=== PATIENT | male | born 1935 | race Caucasian/White ===

== ENCOUNTER 2023-04-22 17:16 | Inpatient (IN) | payer MEDICARE ==
--- NOTE | 2023-04-22 17:33 | ED ---
General Adult HPI - General Source: family, RN notes reviewed <Honey Roldan - Last Filed: 04/22/23 17:32> <Kylee Cummings - Last Filed: 04/22/23 22:17> - General Stated complaint: dehydration, weakness Time Seen by Provider: 04/22/23 17:32 - History of Present Illness Initial comments: Patient is an 87-year-old male presented ER chief complaint of weakness. Family is providing HPI. Sent from urgent care due to urinary retention. Family reports patient has been acting abnormal for the past couple of days. (Honey Roldan) 87-year-old male with past medical history of enlarged prostate, recurrent UTIs who presents to the emergency department with altered mental status. Son-in-law is at bedside and provides a history. States that the patient has been confused for the past couple of days. He has also been weak. They took him to an urgent care today where influenza and COVID swab was performed. Due to the reports that the patient was having they recommended that the patient go into the emergency department for further evaluation. They state that the patient has issues with recurrent UTIs. He was last on antibiotics a couple of weeks ago. Not currently on any antibiotics. The patient has not had any falls. He denies any chest pain or shortness of breath. No abdominal pain. No report of any fevers. Patient does have history of dementia and therefore HPI is limited. No other alleviating, precipitating or modifying factors (Kylee Cummings) - Related Data Home Medications Medication Instructions Recorded Confirmed No Known Home Medications 04/22/23 04/22/23 Allergies Allergy/AdvReac Type Severity Reaction Status Date / Time No Known Allergies Allergy Verified 04/22/23 19:11 Review of Systems ROS Other: All systems not noted in ROS Statement are negative. <Honey Roldan - Last Filed: 04/22/23 17:32> ROS Other: All systems not noted in ROS Statement are negative. <Kylee Cummings - Last Filed: 04/22/23 22:17> ROS Statement: Those systems with pertinent positive or pertinent negative responses have been documented in the HPI. 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 His last check-up July of last year was clear for cancer History of Any Multi-Drug Resistant Organisms: None Reported Past Surgical History: No Surgical Hx Reported Additional Past Surgical History / Comment(s): TURP prior to 2010 Past Anesthesia/Blood Transfusion Reactions: No Reported Reaction Past Psychological History: No Psychological Hx Reported Past Alcohol Use History: Rare Past Drug Use History: None Reported - Past Family History Father Family Medical History: Cancer, CVA/TIA Mother Family Medical History: No Reported History <JamarHoney - Last Filed: 04/22/23 17:32> General Exam <ArvinRenetta malcolmnn - Last Filed: 04/22/23 17:32> General appearance: alert, in no apparent distress Head exam: Present: atraumatic, normocephalic, normal inspection Eye exam: Present: normal appearance, PERRL, EOMI. Absent: scleral icterus, conjunctival injection, periorbital swelling ENT exam: Present: normal exam, mucous membranes moist Neck exam: Present: normal inspection. Absent: tenderness, meningismus, lymphadenopathy Respiratory exam: Present: normal lung sounds bilaterally. Absent: respiratory distress, wheezes, rales, rhonchi, stridor Cardiovascular Exam: Present: tachycardia, irregular rhythm, normal heart sounds. Absent: systolic murmur, diastolic murmur, rubs, gallop, clicks GI/Abdominal exam: Present: soft, normal bowel sounds. Absent: distended, tenderness, guarding, rebound, rigid Extremities exam: Present: normal inspection, full ROM, normal capillary refill. Absent: tenderness, pedal edema, joint swelling, calf tenderness Back exam: Present: normal inspection Neurological exam: Present: alert, CN II-XII intact, other (Oriented x 2) Psychiatric exam: Present: normal affect, normal mood Skin exam: Present: warm, dry, intact, normal color. Absent: rash <Kylee Cummings - Last Filed: 04/22/23 22:17> - General Exam Comments Initial Comments: Visual Physical Exam Vital signs reviewed General: Well-appearing, nontoxic, no acute distress. Head: Normocephalic, atraumatic Eyes: PERRLA, EOMI ENT: Airway patent Chest: Nonlabored breathing Skin: No visual rash, normal skin tone Neuro: Alert and oriented 3 Musculoskeletal: No gross abnormalities (Honey Roldan) Course Vital Signs 04/22/23 04/22/23 17:33 19:01 Temperature 98 F Pulse Rate 125 H 112 H Respiratory 18 17 Rate Blood Pressure 81/52 103/68 O2 Sat by Pulse 98 95 Oximetry Medical Decision Making <Honey Roldan - Last Filed: 04/22/23 17:32> - Lab Data Result diagrams: 04/22/23 17:41 04/22/23 17:41 <EmilianoKylee Morales - Last Filed: 04/22/23 22:17> - Medical Decision Making I performed the quick note portion of the exam. Electronically signed by Honey Roldan PA-C (Honey Roldan) Was pt. sent in by a medical professional or institution ([facility], [facility], urgent care, hospital, or assisted...) When possible be specific @ -Patient was sent in from urgent care Did you speak to anyone other than the patient for history (EMS, parent, family, police, friend...)? What history was obtained from this source @ -I spoke with the daughter and son-in-law Did you review nursing and triage notes (agree or disagree)? Why? @ -I reviewed and agree with nursing and triage notes Were old charts reviewed (outside hosp., previous admission, EMS record, old EKG, old radiological studies, urgent care reports/EKG's, assisted records)? Report findings @ -I reviewed patient's old microbiology. Patient did have a UTI in 2017 which was pansensitive to antibiotics Differential Diagnosis (chest pain, altered mental status, abdominal pain women, abdominal pain men, vaginal bleeding, weakness, fever, dyspnea, syncope, headache, dizziness, GI bleed, back pain, seizure, CVA, palpatations, mental h ealth, musculoskeletal)? @ -Differential Altered Mental Status: Hypoglycemia, DKA, hypercapnia, ETOH, overdose, CO poisoning, trauma, myxedema coma, HTN encephalopathy, infection, encephalitis, psychosis, intercranial hemorrhage, hepatic encephalopathy, meningitis, CVA, this is not meant to be an all-inclusive list EKG interpreted by me (3pts min.). @ -First EKG done at 1741 demonstrates A-fib with a rate of 137. QRS 127. QTc of [address] segment elevations or depressions. Right bundle branch block Repeat EKG done at 2030 demonstrates sinus rhythm with PACs. Rate of 81. QRS 129. QTc of 451. No acute ST segment elevations or depressions. Right bundle branch block X-rays interpreted by me (1pt min.). @ -Yes and there is questionable free air under the right diaphragm. Recommend further imaging to evaluate for this. CT interpreted by me (1pt min.). @ -CT brain, CT chest and CT abdomen are all performed. Patient does have significant prostatomegaly with enlarged bladder. 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 No PE U/S interpreted by me (1pt. min.). @ -None done What testing was considered but not performed or refused? (CT, X-rays, U/S, labs)? Why? @ -None What meds were considered but not given or refused? Why? @ -None Did you discuss the management of the patient with other professionals (professionals i.e. , PA, [facility], lab, RT, psych nurse, social media content manager, aircraft captain, teacher, operations officer afloat, skilled nursing case manager)? Give summary @ -Spoke with Dr. Thomson who will admit the patient Was smoking cessation discussed for >3mins.? @ -No Was critical care preformed (if so, how long)? @ -No Were there social determinants of health that impacted care today? How? (Home lessness, low income, unemployed, alcoholism, drug addiction, transportation, low edu. Level, literacy, decrease access to med. care, fpc, rehab)? @ -No Was there de-escalation of care discussed even if they declined (Discuss DNR or withdrawal of care, Hospice)? DNR status @ -Yes and the family wishes the patient to be full code What co-morbidities impacted this encounter? (DM, HTN, Smoking, COPD, CAD, Cancer, CVA, ARF, Chemo, Hep., AIDS, mental health diagnosis, sleep apnea, morbid obesity)? @ -Recurrent UTIs, enlarged prostate, lymphoma, PE Was patient admitted / discharged? Hospital course, mention meds given and route, prescriptions, significant lab abnormalities, going to OR and other pertinent info. @ -Admitted. Upon arrival patient was placed into room 5. Thorough history and physical exam was performed. Patient placed on continuous pulse ox and cardiac monitoring. Patient does have tachycardia. Noted to be in A-fib with RVR. This is new for the patient. He is denying any chest pain or shortness of breath. Laboratory studies were conducted. Chest x-ray was performed which demonstrates possible free air. Patient has no chest pain however he is sent over for CT of his abdomen pelvis to evaluate for perforated viscus. He is also sent for CT of his chest due to elevated heart rate and history of PE. CT of the brain was performed due to his altered mental status. Imaging is reviewed by myself. He is able to provide a urine sample. Patient found to meet sepsis criteria and the source of the infection was identified at 2049. At this time blood cultures were obtained. Patient given a dose of Rocephin. I also started him on 130 cc of normal saline per hour. Reevaluation of the patient demonstrates that his heart rate is markedly improved. I do feel that the patient has flipped into a normal sinus rhythm. Repeat EKG is performed. Patient does have elevated troponin which is likely due to A-fib. Will trend the troponins. Will not heparinize the patient at this time. I spoke with Dr. Thomson for admission Undiagnosed new problem with uncertain prognosis? @ -Yes Drug Therapy requiring intensive monitoring for toxicity (Heparin, Nitro, Insul in, Cardizem)? @ -No Were any procedures done? @ -No Diagnosis/symptom? @ -Acute encephalopathy, acute UTI, SIRS with sepsis, lactic acidosis, leukocytosis Acute, or Chronic, or Acute on Chronic? @ -Acute Uncomplicated (without systemic symptoms) or Complicated (systemic symptoms)? @ -Complicated Side effects of treatment? @ -No Exacerbation, Progression, or Severe Exacerbation? @ -No Poses a threat to life or bodily function? How? (Chest pain, [place], [place], pneumonia, PE, COPD, DKA, ARF, appy, cholecystitis, CVA, Diverticulitis, Homicidal, Suicidal, threat to staff... and all critical care pts) @ -No (Kylee Cummings) - Lab Data Lab Results 04/22/23 04/22/23 04/22/23 Range/Units 17:41 17:41 17:41 WBC 19.3 H (3.8-10.6) k/uL RBC 4.34 (4.30-5.90) m/uL Hgb 13.3 (13.0-17.5) gm/dL Hct 40.2 (39.0-53.0) % MCV 92.6 (80.0-100.0) fL MCH 30.6 (25.0-35.0) pg MCHC 33.0 (31.0-37.0) g/dL RDW 14.2 (11.5-15.5) % Plt Count 252 (150-450) k/uL MPV 8.6 Neutrophils % (Manual) 92 % Band Neuts % (Manual) 2 % Lymphocytes % (Manual) 3 % Monocytes % (Manual) 3 % Neutrophils # (Manual) 18.10 H (1.3-7.7) k/uL Lymphocytes # (Manual) 0.58 L (1.0-4.8) k/uL Monocytes # (Manual) 0.58 (0-1.0) k/uL Nucleated RBCs 0 (0-0) /100 WBC Manual Slide Review Performed PT 11.6 (10.0-12.5) sec INR 1.1 (<1.2) APTT 22.4 (22.0-30.0) sec Sodium 132 L (137-145) mmol/L Potassium 3.7 (3.5-5.1) mmol/L Chloride 101 (98-107) mmol/L Carbon Dioxide 23 (22-30) mmol/L Anion Gap 8 mmol/L BUN 24 H (9-20) mg/dL Creatinine 1.05 (0.66-1.25) mg/dL Est GFR (CKD-EPI)AfAm 75 (>60 ml/min/1.73 sqM) Est GFR (CKD-EPI)NonAf 65 (>60 ml/min/1.73 sqM) Glucose 109 H (74-99) mg/dL Lactic Ac Sepsis Rflx Plasma Lactic Acid Osmany (0.7-2.0) mmol/L Calcium 9.2 (8.4-10.2) mg/dL Phosphorus 1.1 L (2.5-4.5) mg/dL Magnesium 1.4 L (1.6-2.3) mg/dL Total Bilirubin 1.2 (0.2-1.3) mg/dL AST 35 (17-59) U/L ALT 19 (4-49) U/L Alkaline Phosphatase 94 (38-126) U/L Troponin I (0.000-0.034) ng/mL Total Protein 6.6 (6.3-8.2) g/dL Albumin 3.6 (3.5-5.0) g/dL Urine Color Urine Appearance (Clear) Urine pH (5.0-8.0) Ur Specific Rawlings (1.001-1.035) Urine Protein (Negative) Urine Glucose (UA) (Negative) Urine Ketones (Negative) Urine Blood (Negative) Urine Nitrite (Negative) Urine Bilirubin (Negative) Urine Urobilinogen (<2.0) mg/dL Ur Leukocyte Esterase (Negative) Urine RBC (0-5) /hpf Urine WBC (0-5) /hpf Urine WBC Clumps (None) /hpf Urine Mucus (None) /hpf Influenza Type A (PCR) (Not Detectd) Influenza Type B (PCR) (Not Detectd) RSV (PCR) (Not Detectd) SARS-CoV-2 (PCR) (Not Detectd) 04/22/23 04/22/23 04/22/23 Range/Units 17:41 17:41 17:41 WBC (3.8-10.6) k/uL RBC (4.30-5.90) m/uL Hgb (13.0-17.5) gm/dL Hct (39.0-53.0) % MCV (80.0-100.0) fL MCH (25.0-35.0) pg MCHC (31.0-37.0) g/dL RDW (11.5-15.5) % Plt Count (150-450) k/uL MPV Neutrophils % (Manual) % Band Neuts % (Manual) % Lymphocytes % (Manual) % Monocytes % (Manual) % Neutrophils # (Manual) (1.3-7.7) k/uL Lymphocytes # (Manual) (1.0-4.8) k/uL Monocytes # (Manual) (0-1.0) k/uL Nucleated RBCs (0-0) /100 WBC Manual Slide Review PT (10.0-12.5) sec INR (<1.2) APTT (22.0-30.0) sec Sodium (137-145) mmol/L Potassium (3.5-5.1) mmol/L Chloride (98-107) mmol/L Carbon Dioxide (22-30) mmol/L Anion Gap mmol/L BUN (9-20) mg/dL Creatinine (0.66-1.25) mg/dL Est GFR (CKD-EPI)AfAm (>60 ml/min/1.73 sqM) Est GFR (CKD-EPI)NonAf (>60 ml/min/1.73 sqM) Glucose (74-99) mg/dL Lactic Ac Sepsis Rflx Plasma Lactic Acid Osmany 2.8 H* (0.7-2.0) mmol/L Calcium (8.4-10.2) mg/dL Phosphorus (2.5-4.5) mg/dL Magnesium (1.6-2.3) mg/dL Total Bilirubin (0.2-1.3) mg/dL AST (17-59) U/L ALT (4-49) U/L Alkaline Phosphatase (38-126) U/L Troponin I 0.098 H* (0.000-0.034) ng/mL Total Protein (6.3-8.2) g/dL Albumin (3.5-5.0) g/dL Urine Color Urine Appearance (Clear) Urine pH (5.0-8.0) Ur Specific Rawlings (1.001-1.035) Urine Protein (Negative) Urine Glucose (UA) (Negative) Urine Ketones (Negative) Urine Blood (Negative) Urine Nitrite (Negative) Urine Bilirubin (Negative) Urine Urobilinogen (<2.0) mg/dL Ur Leukocyte Esterase (Negative) Urine RBC (0-5) /hpf Urine WBC (0-5) /hpf Urine WBC Clumps (None) /hpf Urine Mucus (None) /hpf Influenza Type A (PCR) Not Detected (Not Detectd) Influenza Type B (PCR) Not Detected (Not Detectd) RSV (PCR) Not Detected (Not Detectd) SARS-CoV-2 (PCR) Not Detected (Not Detectd) 04/22/23 04/22/23 04/22/23 Range/Units 19:02 20:47 21:09 WBC (3.8-10.6) k/uL RBC (4.30-5.90) m/uL Hgb (13.0-17.5) gm/dL Hct (39.0-53.0) % MCV (80.0-100.0) fL MCH (25.0-35.0) pg MCHC (31.0-37.0) g/dL RDW (11.5-15.5) % Plt Count (150-450) k/uL MPV Neutrophils % (Manual) % Band Neuts % (Manual) % Lymphocytes % (Manual) % Monocytes % (Manual) % Neutrophils # (Manual) (1.3-7.7) k/uL Lymphocytes # (Manual) (1.0-4.8) k/uL Monocytes # (Manual) (0-1.0) k/uL Nucleated RBCs (0-0) /100 WBC Manual Slide Review PT (10.0-12.5) sec INR (<1.2) APTT (22.0-30.0) sec Sodium (137-145) mmol/L Potassium (3.5-5.1) mmol/L Chloride (98-107) mmol/L Carbon Dioxide (22-30) mmol/L Anion Gap mmol/L BUN (9-20) mg/dL Creatinine (0.66-1.25) mg/dL Est GFR (CKD-EPI)AfAm (>60 ml/min/1.73 sqM) Est GFR (CKD-EPI)NonAf (>60 ml/min/1.73 sqM) Glucose (74-99) mg/dL Lactic Ac Sepsis Rflx Y Plasma Lactic Acid Osmany 2.0 (0.7-2.0) mmol/L Calcium (8.4-10.2) mg/dL Phosphorus (2.5-4.5) mg/dL Magnesium (1.6-2.3) mg/dL Total Bilirubin (0.2-1.3) mg/dL AST (17-59) U/L ALT (4-49) U/L Alkaline Phosphatase (38-126) U/L Troponin I (0.000-0.034) ng/mL Total Protein (6.3-8.2) g/dL Albumin (3.5-5.0) g/dL Urine Color Red Urine Appearance Turbid (Clear) Urine pH 7.0 (5.0-8.0) Ur Specific Rawlings 1.030 (1.001-1.035) Urine Protein 1+ H (Negative) Urine Glucose (UA) Negative (Negative) Urine Ketones Negative (Negative) Urine Blood Large H (Negative) Urine Nitrite Positive (Negative) Urine Bilirubin Negative (Negative) Urine Urobilinogen <2.0 (<2.0) mg/dL Ur Leukocyte Esterase Large H (Negative) Urine RBC >182 H (0-5) /hpf Urine WBC >182 H (0-5) /hpf Urine WBC Clumps Many H (None) /hpf Urine Mucus Moderate H (None) /hpf Influenza Type A (PCR) (Not Detectd) Influenza Type B (PCR) (Not Detectd) RSV (PCR) (Not Detectd) SARS-CoV-2 (PCR) (Not Detectd) Disposition <Honey Roldan - Last Filed: 04/22/23 17:32> Is patient prescribed a controlled substance at d/c from ED?: No Time of Disposition: 21:50 Decision to Admit Reason: Admit from EC Decision Date: 04/22/23 Decision Time: 21:50 <Kylee Cummings - Last Filed: 04/22/23 22:17> Clinical Impression: UTI (urinary tract infection), SIRS (systemic inflammatory response syndrome), Lactic acidosis, Leukocytosis, NSTEMI (non-ST elevated myocardial infarction), New onset a-fib Disposition: ADMITTED IP TO THIS HOSP Condition: Stable
[2023-04-22 18:26] LABS: HCT 40.2 % (39.0-53.0); HGB 13.3 gm/dL (13.0-17.5); MCH 30.6 pg (25.0-35.0); MCV 92.6 fL (80.0-100.0); Mean Platelet Volume 8.6; Platelet Count 252 k/uL (150-450); RBC 4.34 m/uL (4.30-5.90); RDW 14.2 % (11.5-15.5); WBC 19.3 k/uL (3.8-10.6)
[2023-04-22 18:32] LABS: INR 1.1 (<1.2); Partial Thromboplastin Time 22.4 sec (22.0-30.0); Prothrombin Time 11.6 sec (10.0-12.5)
[2023-04-22 18:38] LABS: ALT 19 U/L (4-49); AST 35 U/L (17-59); African American GFR (CKD) 75 (>60 ml/min/1.73 sqM); Albumin 3.6 g/dL (3.5-5.0); Alkaline Phosphatase 94 U/L (38-126); Anion Gap 8 mmol/L; Blood Urea Nitrogen 24 mg/dL (9-20); Calcium 9.2 mg/dL (8.4-10.2); Carbon Dioxide 23 mmol/L (22-30); Chloride 101 mmol/L (98-107); Glucose 109 mg/dL (74-99); Magnesium 1.4 mg/dL (1.6-2.3); Non-African American GFR(CKD) 65 (>60 ml/min/1.73 sqM); Phosphorus 1.1 mg/dL (2.5-4.5); Potassium 3.7 mmol/L (3.5-5.1); Sodium 132 mmol/L (137-145); Total Bilirubin 1.2 mg/dL (0.2-1.3); Total Protein 6.6 g/dL (6.3-8.2)
--- NOTE | 2023-04-22 18:51 | XR ---
EXAMINATION TYPE: XR chest 2V DATE OF EXAM: 04/22/2023 COMPARISON: 01/03/2017 HISTORY: 87-year-old male confusion, weakness, dehydration TECHNIQUE: AP and lateral views FINDINGS: Heart normal size. Mild interstitial prominence has a chronic appearance. Some strandy densities in t he lower lungs could represent atelectasis. Spencer of air possibly below the right hemidiaphragm. N o pleural effusion. IMPRESSION: Possible crescent of air below the right hemidiaphragm. Unable to exclude free intraperitoneal air. R ecommend careful clinical correlation for any signs/symptoms of an acute abdomen or recent surgery. C fariba to Dr. Payne in the ER at [phone].
[2023-04-22 19:10] LABS: Band Neutrophils % 2 %; Lymphocytes # (M) 0.58 k/uL (1.0-4.8); Monocytes # (M) 0.58 k/uL (0-1.0); Neutrophils % (M) 92 %; Nucleated Red Blood Cells 0 /100 WBC (0-0); Total Cells Counted 100
--- NOTE | 2023-04-22 19:51 | CT ---
EXAMINATION TYPE: CT brain wo con DATE OF EXAM: 04/22/2023 COMPARISON: 12/24/2009 HISTORY: 87-year-old male Confusion TECHNIQUE: Examination was done in axial plane without intravenous contrast. Coronal and sagittal r econstructions performed. CT DLP: 1182 mGycm Automated exposure control for dose reduction was used. FINDINGS: There is no evidence of acute intracranial hemorrhage, acute ischemic changes, mass, mass-effect, or extra-axial fluid collection. There is no effacement of cerebral sulci or basal subarachnoid cister ns. There is no hydrocephalus. There is no midline shift. Huang-white matter distinction is preserv ed. Normal variation versus stent PSV. Prostatic calcifications in the carotid siphons. Area of cortical hypodensity lateral right frontal lobe is new from 2010. Old lacunar infarct left basal ganglia. Mild bifrontal cerebral atrophy. Moderate lobulated mucosal thickening right maxillary sinus. Additional scattered moderate mucosal th ickening throughout the ethmoid air cells. Mastoid air cells well pneumatized. Bilateral hearing aids . IMPRESSION: 1. A small area of cortical hypodensity laterally frontal lobe likely encephalomalacia related to milady or vascular or traumatic insult. Not seen in 2010. Consider outpatient follow-up MRI with contrast to further evaluate this area. 2. Old lacunar infarct left basal ganglia. 3. Otherwise, no acute intracranial abnormality seen. 4. Moderate chronic ethmoid and right maxillary sinus disease.
--- NOTE | 2023-04-22 19:59 | CT ---
EXAMINATION TYPE: CT chest angio for PE DATE OF EXAM: 04/22/2023 COMPARISON: Radiograph same day. Also, thoracic spine MRI 2017. HISTORY: 87-year-old male Hypotensive, hx of pe. TECHNIQUE: Contiguous axial scanning of the chest performed with IV Contrast, patient injected with 1 00 ml mL of Isovue 370. Coronal and sagittal MIP reconstructions performed. CT DLP: Combined DLP of 1610.4 mGycm Automated exposure control for dose reduction was used. FINDINGS: There is extensive patient breathing motion which degrades the examination. Additional artifact from patient's hands over his chest. Heart is upper limits of normal in size without pericardial effusion. No flattening of the interventr icular septum. LAD and circumflex coronary calcifications are present. 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 Mild aneurysm ascending aorta 4.0 cm. No thoracic lymphadenopathy identified. No obvious large central pulmonary embolus. No definite lobar branch pulmonary embolus. Segmental and more discharge or hemorrhages are essentially nondiagnostic due to the exam limitations. Biapical pleural parenchymal scarring. [id number] diffuse bronchial wall thickening. Prominent strandy dependent atelectasis in the lower lungs. No sizable pleural effusion. Extensive breathing mo tion limits assessment for small pulmonary nodules. Abdomen reported separately. Suspect superior endplate Schmorl's node T12 level unchanged from 2017 MRI. IMPRESSION: 1. SUBOPTIMAL CONTRAST BOLUS. FURTHER LIMITATION THE PATIENT IS BREATHING THROUGH THE SCAN. NO OBV IOUS LARGE CENTRAL PULMONARY EMBOLUS. LOBAR, SEGMENTAL, AND MORE DISTAL ARTERIAL BRANCHES ARE VERY LI MITED AND MOST ARE ENTIRELY NONDIAGNOSTIC FOR ASSESSMENT OF PULMONARY EMBOLI. 2. MILD TO MODERATE BRONCHIAL WALL THICKENING, POSSIBLE BRONCHITIS OR ASTHMA. PROMINENT DEPENDENT ATE LECTASIS. 3. 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 4. ABDOMEN REPORTED SEPARATELY.
--- NOTE | 2023-04-22 20:08 | CT ---
EXAMINATION TYPE: CT abdomen pelvis w con DATE OF EXAM: 04/22/2023 COMPARISON: 01/03/2017 HISTORY: 87-year-old male Unspecified abdominal pain TECHNIQUE: Contiguous axial scanning of the abdomen and pelvis following administration of 100 ml Iso larissa 300 IV contrast. Delayed images through the kidneys and coronal/sagittal reconstructions perform ed. CT DLP: Combined DLP of 1610.4 mGycm Automated exposure control for dose reduction was used. FINDINGS: Chest reported separately. Limited upper abdomen due to extensive breathing motion. Tiny hiatal hernia. Very limited assessment of the liver. Obvious biliary ductal dilatation. Portal venous system appears patent. No abnormal gallbladder distention. Adrenal glands, kidneys, and atrophic pancreas show no gross abnormality. Unchanged appearance to the small spleen with inferior splenules. No dilated small bowel, free fluid, or free air. Infrarenal abdominal aortic aneurysm at 3.6 cm versus 2.9 cm on 01/03/2017. There is circumferential annular thickening at the level of the hepatic flexure of the colon, perfora carlito axial images 11 through 17. Direct visualization to exclude underlying neoplasm here. There is co lonic interposition below the right hemidiaphragm accounting for the radiographic appearance of air b elow the right hemidiaphragm. Normal appendix. There is severe prostatomegaly measuring up to 8.0 cm wide increased from 7.5 cm in 2017. Contiguous soft tissue extending to the left bladder base. Irregular and distorted bladder lumen with either severe bladder wall trabeculations with foci of trapped air within the trabeculations versus bladder wall pneumatosis. Prominent nondependent intraluminal bladder air also also noted. No pelvic adenopathy seen. Bones: Extensive motion artifact limiting assessment. Mild degenerative change of the hips. Stable superior endplate T12 lesion suggesting chronic degenerative etiology. Baastrup's disease. Sca ttered moderate multilevel degenerative disc disease and hypertrophic facet arthropathy. IMPRESSION: 1. NO EVIDENCE FOR FREE INTRAPERITONEAL AIR. THERE IS COLONIC INTERPOSITION BELOW THE RIGHT HEMIDIAPH RAGM ACCOUNTING FOR THE RADIOGRAPHIC APPEARANCE. 2. HOWEVER, THERE IS SOME ANNULAR SOFT TISSUE THICKENING AT THE HEPATIC FLEXURE OF THE COLON. DIRECTL Y VISUALIZATION WHEN PATIENT ABLE TO EXCLUDE UNDERLYING NEOPLASM. 3. SEVERE PROSTATOMEGALY UP TO 8.0 CM WIDE, INCREASED FROM 7.5 CM IN 2017. ABNORMAL SOFT TISSUE THICK ENING EXTENDS TO THE LEFT BLADDER BASE. CORRELATE WITH URINE CYTOLOGY AND PSA VALUES TO EXCLUDE PROST ATE CANCER OR UROTHELIAL NEOPLASM. GIVEN THAT THIS WAS PRESENT TO SOME EXTENT IN 2017, SOME UNDERLYIN G POSTSURGICAL CHANGE AND BPH MAY BE PRESENT. 4. MARKEDLY DISTORTED AND IRREGULAR BLADDER LUMEN WITH SEVERE BLADDER WALL TRABECULATIONS, PROGRESSED FROM 2017. INTRALUMINAL BLADDER AIR AND NUMEROUS FOCI OF AIR ALONG THE WALL OF THE BLADDER PROBABLY AIR TRAPPED WITHIN BLADDER WALL TRABECULATIONS RATHER THAN PNEUMATOSIS. CORRELATED TO EXCLUDE CYSTIT IS INCLUDING EMPHYSEMATOUS CYSTITIS WHICH ARE CONSIDERED LESS LIKELY. RECOMMEND UROLOGY FOLLOW-UP.
[2023-04-22] MEDS: SODIUM CHLORIDE 0.9% 500 ML 500 ML IV ONE (20:52)
[2023-04-22 21:11] LABS: Appearance,Urine Turbid (Clear); Bilirubin,Urine Negative (Negative); Blood,Urine Large (Negative); Color,Urine Red; Glucose,Urine (UA) Negative (Negative); Ketones,Urine Negative (Negative); Leukocyte Esterase,Urine Large (Negative); Mucus,Urine Moderate /hpf; Nitrite,Urine Positive (Negative); Protein,Urine 1+ (Negative); RBC,Urine >182 /hpf (0-5); Urobilinogen,Urine <2.0 mg/dL (<2.0); WBC,Urine >182 /hpf (0-5)
[2023-04-22] MEDS ORDERED: NALOXONE 0.4 MG/ML 1 ML VIAL IV PRN (21:50)
[2023-04-22] MEDS: cefTRIAXone IN SWFI 1,000 MG/10 ML SYRINGE IVP STA (22:54)
[2023-04-22] MEDS: MAGNESIUM SULFATE-D5W PMX 1 GM in DEXTROSE/WATER 1 100ML.BAG IVPB SCH (22:55)
[2023-04-22] MEDS: SODIUM CHLORIDE 0.9% 1,000 ML IV SCH (22:55)
--- NOTE | 2023-04-22 23:51 | P.HPIM ---
History of Present Illness H&P Date: 04/22/23 Patient is a 87-year-old male with a PMH of prostate cancer (not undergoing treatment) who presents to the emergency room with complaints of generalized weakness and confusion. The history is supplemented by the patient's daughter (who lives with the patient) at the bedside who reports that she last saw him at his baseline oriented x 4 and fully independent this morning for breakfast. In the afternoon, she found the patient to be very confused and unable to ambulate due to generalized weakness. She reports that the symptoms are usually indicative of a UTI as he had multiple bouts in the past due to his prostate cancer. The patient has foregone any treatment and previously saw urology [facility] years ago. Patient reported feeling well at the time of interview and was oriented x 4. He does not recall the events of the day but had no active complaints. Denied experiencing abdominal pain, dysuria, fever, chills, cough, nausea, vomiting, chest pain, shortness of breath, or diarrhea. The patient has reportedly been experiencing hematuria throughout the day today. CT abdomen and pelvis in the emergency room revealed severe prostatomegaly 8 cm increased from 7.5 in 2017 along with findings consistent of cystitis with emphysematous cystitis not excluded. Furthermore revealed soft tissue thickening at the hepatic flexure, recommended direct visualization to exclude neoplasm. Chest CTA revealed aneurysmal ascending aorta measuring 4.[address] brain revealed no acute abnormalities. EKG revealed A-fib with RVR at 137 bpm with a right bundle branch block as reviewed by me. Laboratory evaluation was remarkable for lactic acid 2.8, UA consistent with UTI, troponin 0.098, WBC c ount 19.3, magnesium 1.4, lactic acid 2.8. ED documentation reviewed and case discussed with ED provider. Review of systems: Pertinent positives and negatives as discussed in HPI, a complete review of systems was performed and all other systems are negative. Physical examination: Vital signs reviewed General: non toxic, no distress, appears at stated age, normal weight Derm: no unusual rashes/lesions, warm Head: atraumatic, normocephalic, symmetric Eyes: EOMI, no lid lag, anicteric sclera, pupils equal round reactive to light ENT: Nose and ears atraumatic Neck: No cervical lymphadenopathy, trachea midline, supple Mouth: no lip lesion, mucus membranes moist Cardiovascular: S1S2 reg, no murmur, positive dorsalis pedis pulse bilateral, no edema Lungs: CTA bilateral, no rhonchi, no rales, no accessory muscle use Abdominal: soft, nontender to palpation, no guarding, Long catheter in place with bag containing bloody urine Ext: muscle strength 4 out of 5 in all 4 extremities grossly, no gross muscle atrophy, no contractures Neuro: CN II-XI grossly intact, no gross focal neuro deficits Psych: Alert, oriented, appropriate affect Assessment: UTI, in setting of prostate cancer and hematuria A-fib with RVR, newly diagnosed Elevated troponin, suspect due to A-fib, currently asymptomatic Lactic acidosis Hypomagnesemia Imaging: CT abdomen and pelvis in the emergency room revealed severe prostatomegaly 8 cm increased from 7.5 in 2017 along with findings consistent of cystitis with emphysematous cystitis not excluded. Furthermore revealed soft tissue thickening at the hepatic flexure, recommended direct visualization to exclude neoplasm. Chest CTA revealed aneurysmal ascending aorta measuring 4.[address] brain revealed no acute abnormalities. EKG revealed A-fib with RVR at 137 bpm with a right bundle branch block as reviewed by me. Data Review: Laboratory evaluation was remarkable for lactic acid 2.8, UA consistent with UTI, troponin 0.098, WBC count 19.3, magnesium 1.4, lactic acid 2.8. Plan: Prior urine cultures from 2017 showing pansensitive E. 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 His last check-up July of last year was clear for cancer History of Any Multi-Drug Resistant Organisms: None Reported Past Surgical History: No Surgical Hx Reported Additional Past Surgical History / Comment(s): TURP prior to 2009 Past Anesthesia/Blood Transfusion Reactions: No Reported Reaction Past Psychological History: No Psychological Hx Reported Past Alcohol Use History: Rare Past Drug Use History: None Reported - Past Family History Father Family Medical History: Cancer, CVA/TIA Mother Family Medical History: No Reported History Medications and Allergies Home Medications Medication Instructions Recorded Confirmed Type No Known Home Medications 04/22/23 04/22/23 History Allergies Allergy/AdvReac Type Severity Reaction Status Date / Time No Known Allergies Allergy Verified 04/22/23 19:11 Physical Exam Vitals: Vital Signs Temp Pulse Resp BP Pulse Ox 04/22/23 19:01 112 H 17 103/68 95 04/22/23 17:33 98 F 125 H 18 81/52 98 Intake and Output 04/22/23 04/22/23 04/23/23 14:59 22:59 06:59 Other: Weight 79.379 kg Results CBC & Chem 7: 04/22/23 17:41 04/22/23 17:41 Labs: Abnormal Lab Results - Last 24 Hours (Table) 04/22/23 04/22/23 04/22/23 Range/Units 17:41 17:41 17:41 WBC 19.3 H (3.8-10.6) k/uL Neutrophils # (Manual) 18.10 H (1.3-7.7) k/uL Lymphocytes # (Manual) 0.58 L (1.0-4.8) k/uL Sodium 132 L (137-145) mmol/L BUN 24 H (9-20) mg/dL Glucose 109 H (74-99) mg/dL Plasma Lactic Acid Osmany 2.8 H* (0.7-2.0) mmol/L Phosphorus 1.1 L (2.5-4.5) mg/dL Magnesium 1.4 L (1.6-2.3) mg/dL Troponin I (0.000-0.034) ng/mL Urine Protein (Negative) Urine Blood (Negative) Ur Leukocyte Esterase (Negative) Urine RBC (0-5) /hpf Urine WBC (0-5) /hpf Urine WBC Clumps (None) /hpf Urine Mucus (None) /hpf 04/22/23 04/22/23 Range/Units 17:41 20:47 WBC (3.8-10.6) k/uL Neutrophils # (Manual) (1.3-7.7) k/uL Lymphocytes # (Manual) (1.0-4.8) k/uL Sodium (137-145) mmol/L BUN (9-20) mg/dL Glucose (74-99) mg/dL Plasma Lactic Acid Osmany (0.7-2.0) mmol/L Phosphorus (2.5-4.5) mg/dL Magnesium (1.6-2.3) mg/dL Troponin I 0.098 H* (0.000-0.034) ng/mL Urine Protein 1+ H (Negative) Urine Blood Large H (Negative) Ur Leukocyte Esterase Large H (Negative) Urine RBC >182 H (0-5) /hpf Urine WBC >182 H (0-5) /hpf Urine WBC Clumps Many H (None) /hpf Urine Mucus Moderate H (None) /hpf
[2023-04-23 05:09] LABS: Basophils % (A) 0 %; Eosinophils % (A) 0 %; HGB 11.9 gm/dL (13.0-17.5); Lymphocytes % (A) 4 %; MCH 30.4 pg (25.0-35.0); MCHC 32.2 g/dL (31.0-37.0); MCV 94.2 fL (80.0-100.0); Monocytes # (A) 0.8 k/uL (0-1.0); Monocytes % (A) 4 %; Neutrophils # (A) 20.8 k/uL (1.3-7.7); Neutrophils % (A) 91 %; Platelet Count 217 k/uL (150-450); RBC 3.93 m/uL (4.30-5.90); RDW 14.2 % (11.5-15.5); WBC 22.8 k/uL (3.8-10.6)
[2023-04-23 05:22] LABS: African American GFR (CKD) >90 (>60 ml/min/1.73 sqM); Anion Gap 2 mmol/L; Blood Urea Nitrogen 21 mg/dL (9-20); Calcium 8.5 mg/dL (8.4-10.2); Carbon Dioxide 25 mmol/L (22-30); Chloride 106 mmol/L (98-107); Glucose 120 mg/dL (74-99); Non-African American GFR(CKD) 80 (>60 ml/min/1.73 sqM); Potassium 4.2 mmol/L (3.5-5.1); Sodium 133 mmol/L (137-145)
[2023-04-23] MEDS: APIXABAN 5 MG TAB PO SCH (08:15)
[2023-04-23] MEDS: AMIODARONE 200 MG TAB PO SCH (08:15)
--- NOTE | 2023-04-23 08:54 | P.GSCN ---
History of Present Illness Consult date: 04/23/23 History of present illness: 87 yo male brought into the hospital because of confusion. He is found to have a uti. He has an elevated wbc[22k] and lactic acid consistent with uti with sepsis. The patient apparently has had recurrent utis. THe patient has a large prostate on ct scan. He wasnt in retention on the ct scan. there are no upper tract abnormalities noted. He had a turp years ago. He states that he has a history of prostate cancer and follows with his local doctor for this. He states that recently he has been on cranberry extract for recurrent uti as well having hematuria. Upon reviewing his ofice chart he had a turp in 2004 for retention and b9 disease. He came to me in 2018 with an elevated psa [30-40]. He ended up at the [facility] where he underwent a trus with fusion biopsy for g7 05/17 bx positive for ca p. the [facility] did not recommend any treatment given his age and health issues.. The patients large prostate was contributing to most of the elevated psa. 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 His last check-up July of last year was clear for cancer History of Any Multi-Drug Resistant Organisms: None Reported Past Surgical History: No Surgical Hx Reported Additional Past Surgical History / Comment(s): TURP prior to 2009 Past Anesthesia/Blood Transfusion Reactions: No Reported Reaction Past Psychological History: No Psychological Hx Reported Past Alcohol Use History: Rare Past Drug Use History: None Reported - Past Family History Father Family Medical History: Cancer, CVA/TIA Mother Family Medical History: No Reported History Medications and Allergies Home Medications Medication Instructions Recorded Confirmed Type No Known Home Medications 04/22/23 04/22/23 History Allergies Allergy/AdvReac Type Severity Reaction Status Date / Time No Known Allergies Allergy Verified 04/22/23 19:11 Surgical - Exam Vital Signs Temp Pulse Resp BP Pulse Ox 98 F 125 H 18 81/52 98 04/22/23 17:33 04/22/23 17:33 04/22/23 17:33 04/22/23 17:33 04/22/23 17:33 Results - Labs 04/23/23 04:54 04/23/23 04:54 Abnormal Lab Results - Last 24 Hours (Table) 04/22/23 04/22/23 04/22/23 Range/Units 17:41 17:41 17:41 WBC 19.3 H (3.8-10.6) k/uL RBC (4.30-5.90) m/uL Hgb (13.0-17.5) gm/dL Hct (39.0-53.0) % Neutrophils # (1.3-7.7) k/uL Neutrophils # (Manual) 18.10 H (1.3-7.7) k/uL Lymphocytes # (Manual) 0.58 L (1.0-4.8) k/uL Sodium 132 L (137-145) mmol/L BUN 24 H (9-20) mg/dL Glucose 109 H (74-99) mg/dL Plasma Lactic Acid Osmany 2.8 H* (0.7-2.0) mmol/L Phosphorus 1.1 L (2.5-4.5) mg/dL Magnesium 1.4 L (1.6-2.3) mg/dL Troponin I (0.000-0.034) ng/mL Urine Protein (Negative) Urine Blood (Negative) Ur Leukocyte Esterase (Negative) Urine RBC (0-5) /hpf Urine WBC (0-5) /hpf Urine WBC Clumps (None) /hpf Urine Mucus (None) /hpf 04/22/23 04/22/23 04/23/23 Range/Units 17:41 20:47 00:48 WBC (3.8-10.6) k/uL RBC (4.30-5.90) m/uL Hgb (13.0-17.5) gm/dL Hct (39.0-53.0) % Neutrophils # (1.3-7.7) k/uL Neutrophils # (Manual) (1.3-7.7) k/uL Lymphocytes # (Manual) (1.0-4.8) k/uL Sodium (137-145) mmol/L BUN (9-20) mg/dL Glucose (74-99) mg/dL Plasma Lactic Acid Osmany (0.7-2.0) mmol/L Phosphorus (2.5-4.5) mg/dL Magnesium (1.6-2.3) mg/dL Troponin I 0.098 H* 0.234 H* (0.000-0.034) ng/mL Urine Protein 1+ H (Negative) Urine Blood Large H (Negative) Ur Leukocyte Esterase Large H (Negative) Urine RBC >182 H (0-5) /hpf Urine WBC >182 H (0-5) /hpf Urine WBC Clumps Many H (None) /hpf Urine Mucus Moderate H (None) /hpf 04/23/23 04/23/23 04/23/23 Range/Units 04:54 04:54 04:54 WBC 22.8 H (3.8-10.6) k/uL RBC 3.93 L (4.30-5.90) m/uL Hgb 11.9 L (13.0-17.5) gm/dL Hct 37.0 L (39.0-53.0) % Neutrophils # 20.8 H (1.3-7.7) k/uL Neutrophils # (Manual) (1.3-7.7) k/uL Lymphocytes # (Manual) (1.0-4.8) k/uL Sodium 133 L (137-145) mmol/L BUN 21 H (9-20) mg/dL Glucose 120 H (74-99) mg/dL Plasma Lactic Acid Osmany (0.7-2.0) mmol/L Phosphorus (2.5-4.5) mg/dL Magnesium (1.6-2.3) mg/dL Troponin I 0.244 H* (0.000-0.034) ng/mL Urine Protein (Negative) Urine Blood (Negative) Ur Leukocyte Esterase (Negative) Urine RBC (0-5) /hpf Urine WBC (0-5) /hpf Urine WBC Clumps (None) /hpf Urine Mucus (None) /hpf Diabetes panel 04/22/23 04/23/23 Range/Units 17:41 04:54 Sodium 132 L 133 L (137-145) mmol/L Potassium 3.7 4.2 (3.5-5.1) mmol/L Chloride 101 106 (98-107) mmol/L Carbon Dioxide 23 25 (22-30) mmol/L BUN 24 H 21 H (9-20) mg/dL Creatinine 1.05 0.84 (0.66-1.25) mg/dL Glucose 109 H 120 H (74-99) mg/dL Calcium 9.2 8.5 (8.4-10.2) mg/dL AST 35 (17-59) U/L ALT 19 (4-49) U/L Alkaline Phosphatase 94 (38-126) U/L Total Protein 6.6 (6.3-8.2) g/dL Albumin 3.6 (3.5-5.0) g/dL Calcium panel 04/22/23 04/23/23 Range/Units 17:41 04:54 Calcium 9.2 8.5 (8.4-10.2) mg/dL Phosphorus 1.1 L (2.5-4.5) mg/dL Albumin 3.6 (3.5-5.0) g/dL Pituitary panel 04/22/23 04/23/23 Range/Units 17:41 04:54 Sodium 132 L 133 L (137-145) mmol/L Potassium 3.7 4.2 (3.5-5.1) mmol/L Chloride 101 106 (98-107) mmol/L Carbon Dioxide 23 25 (22-30) mmol/L BUN 24 H 21 H (9-20) mg/dL Creatinine 1.05 0.84 (0.66-1.25) mg/dL Glucose 109 H 120 H (74-99) mg/dL Calcium 9.2 8.5 (8.4-10.2) mg/dL Adrenal panel 04/22/23 04/23/23 Range/Units 17:41 04:54 Sodium 132 L 133 L (137-145) mmol/L Potassium 3.7 4.2 (3.5-5.1) mmol/L Chloride 101 106 (98-107) mmol/L Carbon Dioxide 23 25 (22-30) mmol/L BUN 24 H 21 H (9-20) mg/dL Creatinine 1.05 0.84 (0.66-1.25) mg/dL Glucose 109 H 120 H (74-99) mg/dL Calcium 9.2 8.5 (8.4-10.2) mg/dL Total Bilirubin 1.2 (0.2-1.3) mg/dL AST 35 (17-59) U/L ALT 19 (4-49) U/L Alkaline Phosphatase 94 (38-126) U/L Total Protein 6.6 (6.3-8.2) g/dL Albumin 3.6 (3.5-5.0) g/dL - Imaging CT scan - abdomen: report reviewed, image reviewed CT scan - pelvis: report reviewed, image reviewed Assessment and Plan Assessment: Impression: Recurrent uti. Uti with sepsis. history of prostate cancer status indeterminate. Recommendations; Antibiotics and cultures. Will try to determine the status of the cancer however I doubt that it has anything to do with the recurrent utis. I suspect the larger prostate however is a contributing factor. Time with Patient: Greater than 30
[2023-04-23] MEDS ORDERED: ENOXAPARIN 40 MG/0.4 ML SYRINGE SQ SCH (09:00)
--- NOTE | 2023-04-23 09:54 | P.CRDCN ---
History of Present Illness Consult date: 04/23/23 Reason for Consult (text): NSTEMI, NEW ONSET AFIB History of present illness: History of present illness: This is an 87-year-old male with no previous cardiac history. He has a past medical history of large B-cell lymphoma status postchemotherapy in 2010, PE. We have been asked to evaluate the patient for non-ST elevated myocardial infarction and new onset of atrial fibrillation. Patient presented to the hospital due to weakness. Patient denies having any chest pain, palpitations. He is unable to provide reliable history due to underlying dementia. EKG #1 sinus rhythm, #2 A-fib 137 bpm, right bundle branch block, telemetry now sinus rhythm Chest x-ray: Unable to exclude free intraperitoneal air. CT of the abdomen pelvis with contrast reveals no evidence of free intraperitoneal air. Annular soft tissue thickening of the hepatic flexure. Severe prostatomegaly. Distorted and irregular bladder lumen severe bladder wall trabeculations. CT angiogram of the chest suboptimal. No obvious large central pulmonary embolus. Mild to moderate bronchial wall thickening possible bronchitis or asthma. Aneurysmal ascending aorta with root measuring 4.4 cm and ascending portion measuring 4 cm. WBC 22.8, hemoglobin 9.9, platelet count 217. INR 1.1. Sodium 132, potassium 4.2, BUN 21 creatinine 0.84. Blood sugar 120. Troponins 0.098, 0.234, 0.244. Urinalysis positive for infection and blood. Influenza A, influenza B, RSV, COV ID-19 not detected. Home cardiac medications: None Review Of Systems: At the time of my exam: Unable to obtain due to confusion. Physical examination: Gen: This is a 87-year-old male in no acute distress. VS: reviewed HEENT: Head is atraumatic, normocephalic. Pupils equal, round. Sclerae is anicte doris. NECK: Supple. No JVD. LUNGS: Clear to auscultation. No wheezes or rhonchi. No intercostal re tractions. HEART: Regular rate and rhythm. No murmur. ABDOMEN: Soft No tenderness. EXTREMITIES: No pedal edema. No calf tenderness. NEUROLOGICAL: Patient is awake. Assessment: Paroxysmal atrial fibrillation Weakness UTI and sepsis Non-ST elevated myocardial infarction type II due to oxygen demand mismatch from sepsis History of large B-cell lymphoma Plan: Start patient on amiodarone 2 mg twice daily and Eliquis 5 mg twice daily Obtain 2-D echocardiogram and Doppler study to assess cardiac structure and function Further recommendations to follow based upon clinical course Thank you kindly for this consultation. Nurse practitioner note has been reviewed, I agree with documented findings and plan of care. Patient was seen and examined. 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 His last check-up July of last year was clear for cancer History of Any Multi-Drug Resistant Organisms: None Reported Past Surgical History: No Surgical Hx Reported Additional Past Surgical History / Comment(s): TURP prior to 2009 Past Anesthesia/Blood Transfusion Reactions: No Reported Reaction Past Psychological History: No Psychological Hx Reported Past Alcohol Use History: Rare Past Drug Use History: None Reported - Past Family History Father Family Medical History: Cancer, CVA/TIA Mother Family Medical History: No Reported History Medications and Allergies Home Medications Medication Instructions Recorded Confirmed Type No Known Home Medications 04/22/23 04/22/23 History Allergies Allergy/AdvReac Type Severity Reaction Status Date / Time No Known Allergies Allergy Verified 04/22/23 19:11 Physical Exam Vitals: Vital Signs Temp Pulse Resp BP Pulse Ox 04/23/23 06:00 64 16 96/63 95 04/23/23 03:00 65 15 92/53 96 04/23/23 01:00 71 22 90/53 93 L 04/23/23 00:00 76 15 95/54 94 L 04/22/23 23:00 75 14 98/55 96 04/22/23 22:00 76 18 103/71 95 04/22/23 19:01 112 H 17 103/68 95 04/22/23 17:33 98 F 125 H 18 81/52 98 Intake and Output 04/22/23 04/23/23 04/23/23 22:59 06:59 14:59 Other: Weight 79.379 kg Results 04/23/23 04:54 04/23/23 04:54 Cardiac Enzymes 04/22/23 04/22/23 04/23/23 Range/Units 17:41 17:41 00:48 AST 35 (17-59) U/L Troponin I 0.098 H* 0.234 H* (0.000-0.034) ng/mL 04/23/23 Range/Units 04:54 AST (17-59) U/L Troponin I 0.244 H* (0.000-0.034) ng/mL Coagulation 04/22/23 Range/Units 17:41 PT 11.6 (10.0-12.5) sec APTT 22.4 (22.0-30.0) sec CBC 04/22/23 04/23/23 Range/Units 17:41 04:54 WBC 19.3 H 22.8 H (3.8-10.6) k/uL RBC 4.34 3.93 L (4.30-5.90) m/uL Hgb 13.3 11.9 L (13.0-17.5) gm/dL Hct 40.2 37.0 L (39.0-53.0) % Plt Count 252 217 (150-450) k/uL Comprehensive Metabolic Panel 04/22/23 04/23/23 Range/Units 17:41 04:54 Sodium 132 L 133 L (137-145) mmol/L Potassium 3.7 4.2 (3.5-5.1) mmol/L Chloride 101 106 (98-107) mmol/L Carbon Dioxide 23 25 (22-30) mmol/L BUN 24 H 21 H (9-20) mg/dL Creatinine 1.05 0.84 (0.66-1.25) mg/dL Glucose 109 H 120 H (74-99) mg/dL Calcium 9.2 8.5 (8.4-10.2) mg/dL AST 35 (17-59) U/L ALT 19 (4-49) U/L Alkaline Phosphatase 94 (38-126) U/L Total Protein 6.6 (6.3-8.2) g/dL Albumin 3.6 (3.5-5.0) g/dL Current Medications Generic Name Dose Route Start Last Admin Trade Name Freq PRN Reason Stop Dose Admin Acetaminophen 650 mg 04/22/23 22:01 Acetaminophen Tab 325 Mg Tab PO Q6HR PRN Mild Pain or Fever > 100.5 Amiodarone HCl 200 mg 04/23/23 09:00 Amiodarone 200 Mg Tab PO BID JULEE Apixaban 5 mg 04/23/23 09:00 Apixaban 5 Mg Tab PO BID JULEE Protocol Sodium Chloride 1,000 mls @ 130 mls/hr 04/22/23 20:45 04/23/23 06:01 Saline 0.9% IV 130 mls/hr .[id number] JULEE Administration Naloxone HCl 0.2 mg 04/22/23 21:50 Naloxone 0.4 Mg/Ml 1 Ml Vial IV Q2M PRN Opioid Reversal Intake and Output 04/22/23 04/23/23 04/23/23 22:59 06:59 14:59 Other: Weight 79.379 kg 04/23/23 04:54 04/23/23 04:54
--- NOTE | 2023-04-23 14:30 | P.PN ---
Subjective Progress Note Date: 04/23/23 Hospital Course: 87-year-old male with a PMH of prostate cancer?, BPH, large B-cell lymphoma treated with chemotherapy in 2009, who presents to the emergency room with complaints of generalized weakness and confusion. CT abdomen and pelvis in the emergency room revealed severe prostatomegaly 8 cm increased from 7.5 in 2017 along with findings consistent of cystitis with emphysematous cystitis not excl uded. Furthermore revealed soft tissue thickening at the hepatic flexure, recommended direct visualization to exclude neoplasm. Chest CTA revealed aneurysmal ascending aorta measuring 4.[address] brain revealed no acute abnormalities. EKG revealed A-fib with RVR at 137 bpm with a right bundle bra nch block . Laboratory evaluation was remarkable for lactic acid 2.8, UA consistent with UTI, troponin 0.098, WBC count 19.3, magnesium 1.4, lactic acid 2.8. Patient started on IV ceftriaxone. Cardiology and urology consulted. Subjective: Patient seen and examined at bedside. No acute events overnight. Denies any complaints at the moment. Long catheter in place. Pertinent positives and negatives as discussed above, a complete review of systems was performed and all other systems are negative. Vitals Signs Reviewed. General: Nontoxic, no distress, appears at stated age, chronically ill-appearing Derm: Warm, dry Head: Atraumatic, normocephalic, symmetric Eyes: EOMI, no lid lag, anicteric sclera Mouth: No lip lesion, mucus membranes moist Cardiovascular: S1S2 reg, no murmur Lungs: CTA bilateral, no rhonchi, no rales, no accessory muscle use Abdominal: Soft, nontender to palpation, no guarding, no appreciable organomegaly Ext: No gross muscle atrophy, no edema, no contractures Neuro: CN II-XI grossly intact, no focal neuro deficits Psych: Alert, oriented x 2, appropriate affect Data Reviewed Today: Pertinent Labs: WBC 22.8, hemoglobin 11.9, creatinine 0.84, troponin 0.244 Imaging: No new imaging Assessment and Plan: Patient is severely ill, needs close monitoring Active: Sepsis secondary to UTI 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 History of prostate cancer Possible colonic mass, possible recurrent B-cell lymphoma Atrial fibrillation with RVR, newly diagnosed, now rate controlled NSTEMI, likely type II acute metabolic encephalopathy hypomagnesemia -Blood cultures, urine cultures pending -Continue normal saline at 130 cc an hour -Continue IV ceftriaxone 2 g every 24 hours -Urology note reviewed, no interventions needed at this point -Cardiology note reviewed, started patient on amiodarone 200 mg twice daily, Eliquis 5 mg twice daily, echocardiogram pending -Encephalopathy likely in the setting of sepsis, and UTI -Repeat CBC, BMP and magnesium Resolved: Lactic acidosis DVT ppx: Eliquis Code status: Full code Anticipated discharge place: Pending clinical course Anticipated discharge time: Pending clinical course Objective - Vital Signs Vital signs: Vital Signs Temp 98 F 04/22/23 17:33 Pulse 75 04/23/23 10:00 Resp 16 04/23/23 10:00 BP 109/64 04/23/23 10:00 Pulse Ox 95 04/23/23 10:00 FiO2 Intake & Output 04/22/23 04/23/23 04/23/23 18:59 06:59 18:59 Weight 79.379 kg - Labs CBC & Chem 7: 04/23/23 04:54 04/23/23 04:54 Labs: Abnormal Lab Results - Last 24 Hours (Table) 04/22/23 04/22/23 04/22/23 Range/Units 17:41 17:41 17:41 WBC 19.3 H (3.8-10.6) k/uL RBC (4.30-5.90) m/uL Hgb (13.0-17.5) gm/dL Hct (39.0-53.0) % Neutrophils # (1.3-7.7) k/uL Neutrophils # (Manual) 18.10 H (1.3-7.7) k/uL Lymphocytes # (Manual) 0.58 L (1.0-4.8) k/uL Sodium 132 L (137-145) mmol/L BUN 24 H (9-20) mg/dL Glucose 109 H (74-99) mg/dL Plasma Lactic Acid Osmany 2.8 H* (0.7-2.0) mmol/L Phosphorus 1.1 L (2.5-4.5) mg/dL Magnesium 1.4 L (1.6-2.3) mg/dL Troponin I (0.000-0.034) ng/mL Urine Protein (Negative) Urine Blood (Negative) Ur Leukocyte Esterase (Negative) Urine RBC (0-5) /hpf Urine WBC (0-5) /hpf Urine WBC Clumps (None) /hpf Urine Mucus (None) /hpf 04/22/23 04/22/23 04/23/23 Range/Units 17:41 20:47 00:48 WBC (3.8-10.6) k/uL RBC (4.30-5.90) m/uL Hgb (13.0-17.5) gm/dL Hct (39.0-53.0) % Neutrophils # (1.3-7.7) k/uL Neutrophils # (Manual) (1.3-7.7) k/uL Lymphocytes # (Manual) (1.0-4.8) k/uL Sodium (137-145) mmol/L BUN (9-20) mg/dL Glucose (74-99) mg/dL Plasma Lactic Acid Osmany (0.7-2.0) mmol/L Phosphorus (2.5-4.5) mg/dL Magnesium (1.6-2.3) mg/dL Troponin I 0.098 H* 0.234 H* (0.000-0.034) ng/mL Urine Protein 1+ H (Negative) Urine Blood Large H (Negative) Ur Leukocyte Esterase Large H (Negative) Urine RBC >182 H (0-5) /hpf Urine WBC >182 H (0-5) /hpf Urine WBC Clumps Many H (None) /hpf Urine Mucus Moderate H (None) /hpf 04/23/23 04/23/23 04/23/23 Range/Units 04:54 04:54 04:54 WBC 22.8 H (3.8-10.6) k/uL RBC 3.93 L (4.30-5.90) m/uL Hgb 11.9 L (13.0-17.5) gm/dL Hct 37.0 L (39.0-53.0) % Neutrophils # 20.8 H (1.3-7.7) k/uL Neutrophils # (Manual) (1.3-7.7) k/uL Lymphocytes # (Manual) (1.0-4.8) k/uL Sodium 133 L (137-145) mmol/L BUN 21 H (9-20) mg/dL Glucose 120 H (74-99) mg/dL Plasma Lactic Acid Osmany (0.7-2.0) mmol/L Phosphorus (2.5-4.5) mg/dL Magnesium (1.6-2.3) mg/dL Troponin I 0.244 H* (0.000-0.034) ng/mL Urine Protein (Negative) Urine Blood (Negative) Ur Leukocyte Esterase (Negative) Urine RBC (0-5) /hpf Urine WBC (0-5) /hpf Urine WBC Clumps (None) /hpf Urine Mucus (None) /hpf
--- NOTE | 2023-04-23 17:34 | CA ---
Transthoracic Echo Report Name: Neymar Dela Cruz Age: 87 Gender: M : 1935 Exam Date: 04/23/2023 15:37 Exam Location: [facility] Ht (in): 70 Wt (lb): 175 Ordering Physician: Lissa Bowens Attending/Referring Phys: [id number], Gogo Multigrapher Farhana Pal RDCS Procedure CPT: Indications: LVF Cardiac Hx: Technical Quality: Fair Contrast 1: Total Dose (mL): Contrast 2: Total Dose (mL): MEASUREMENTS (Male / Female) Normal Values 2D ECHO LV Diastolic Diameter PLAX 4.0 cm 4.2 - 5.9 / 3.9 - 5.3 cm LV Systolic Diameter PLAX 2.5 cm IVS Diastolic Thickness 1.2 cm 0.6 - 1.0 / 0.6 - 0.9 cm LVPW Diastolic Thickness 0.9 cm 0.6 - 1.0 / 0.6 - 0.9 cm LV Relative Wall Thickness 0.5 Aortic Root Diameter 3.7 cm LA Systolic Diameter LX 4.1 cm 3.0 - 4.0 / 2.7 - 3.8 cm DOPPLER AV Peak Velocity 109.4 cm/s AV Peak Gradient 4.8 mmHg AV Mean Velocity 88.7 cm/s AV Mean Gradient 3.3 mmHg AV Velocity Time Integral 22.5 cm LVOT Peak Velocity 94.4 cm/s LVOT Peak Gradient 3.6 mmHg LVOT Velocity Time Integral 20.5 cm Mitral E Point Velocity 101.9 cm/s Mitral A Point Velocity 76.7 cm/s Mitral E to A Ratio 1.3 MV Deceleration Time 263.2 ms PV Peak Velocity 37.6 cm/s PV Peak Gradient 0.6 mmHg FINDINGS Left Ventricle Mildly increased septal wall thickness. Left ventricular ejection fraction is estimated at 55-60 %. Right Ventricle Normal right ventricular size and function. Right Atrium Normal right atrial size. Left Atrium Mildly increased left atrial diameter. Mitral Valve Mild mitral regurgitation. Aortic Valve Aortic valve not well visualized. Tricuspid Valve Trace tricuspid regurgitation. Pulmonic Valve Pulmonic valve not well visualized. Pericardium Normal pericardium. Aorta Aortic root and proximal ascending aorta not well visualized. CONCLUSIONS Mildly increased left ventricular wall thickness Left ventricular ejection fraction 55-60% Mild mitral regurgitation Trace tricuspid regurgitation Previewed by: Dr. James Lares DO (Electronically Signed) Final Date: 23 April 2023 17:33
[2023-04-23] MEDS: SENNOSIDES 8.6 MG TAB PO SCH (21:01)
[2023-04-24 09:01] LABS: Basophils % (A) 0 %; Eosinophils # (A) 0.1 k/uL (0-0.7); Eosinophils % (A) 0 %; HCT 42.1 % (39.0-53.0); HGB 13.3 gm/dL (13.0-17.5); Hypochromasia Slight; Lymphocytes # (A) 1.4 k/uL (1.0-4.8); Lymphocytes % (A) 9 %; MCHC 31.5 g/dL (31.0-37.0); MCV 95.3 fL (80.0-100.0); Mean Platelet Volume 9.1; Monocytes # (A) 0.8 k/uL (0-1.0); Monocytes % (A) 5 %; Neutrophils # (A) 12.6 k/uL (1.3-7.7); Neutrophils % (A) 84 %; Platelet Count 231 k/uL (150-450); RBC 4.42 m/uL (4.30-5.90); WBC 15.1 k/uL (3.8-10.6)
--- NOTE | 2023-04-24 09:12 | P.PN ---
Subjective Progress Note Date: 04/24/23 Reason for Consult (text): NSTEMI, NEW ONSET AFIB History of present illness: History of present illness: This is an 87-year-old male with no previous cardiac history. He has a past medical history of large B-cell lymphoma status postchemotherapy in 2010, PE. We have been asked to evaluate the patient for non-ST elevated myocardial infarction and new onset of atrial fibrillation. Patient presented to the hospital due to weakness. Patient denies having any chest pain, palpitations. He is unable to provide reliable history due to underlying dementia. EKG #1 sinus rhythm, #2 A-fib 137 bpm, right bundle branch block, telemetry now sinus rhythm Chest x-ray: Unable to exclude free intraperitoneal air. CT of the abdomen pelvis with contrast reveals no evidence of free intraperitoneal air. Annular soft tissue thickening of the hepatic flexure. Severe prostatomegaly. Distorted and irregular bladder lumen severe bladder wall trabeculations. CT angiogram of the chest suboptimal. No obvious large central pulmonary embolus. Mild to moderate bronchial wall thickening possible bronchitis or asthma. Aneurysmal ascending aorta with root measuring 4.4 cm and ascending portion measuring 4 cm. WBC 22.8, hemoglobin 9.9, platelet count 217. INR 1.1. Sodium 132, potassium 4.2, BUN 21 creatinine 0.84. Blood sugar 120. Troponins 0.098, 0.234, 0.244. Urinalysis positive for infection and blood. Influenza A, influenza B, RSV, COVID-19 not detected. Home cardiac medications: None 04/24 Patient is seen today on the cardiac stepdown unit. His mental status seems to be a little improved from yesterday. He is complaining of difficulty with urination. No complaints of chest pain, palpitations, shortness of breath lightheadedness or dizziness. Patient is currently in sinus rhythm. Blood pressure 148/75, heart rate 67, pulse ox 94% on room air. WBC 15.1, hemoglobin 13.3. Chemistry is pending. Echocardiogram reveals EF of 55 to 60%, mild mitral regurgitation, trace tricuspid regurgitation. Physical examination: Gen: This is a 87-year-old male in no acute distress. VS: reviewed HEENT: Head is atraumatic, normocephalic. Pupils equal, round. Sclerae is anicteric. LUNGS: Clear to auscultation. No wheezes or rhonchi. No intercostal retractions. HEART: Regular rate and rhythm. No murmur. EXTREMITIES: No pedal edema. No calf tenderness. NEUROLOGICAL: Patient is awake and alert. Assessment: Paroxysmal atrial fibrillation Weakness UTI and sepsis Non-ST elevated myocardial infarction type II due to oxygen demand mismatch from sepsis History of large B-cell lymphoma Plan: Continue patient on amiodarone 200 mg twice daily and Eliquis 5 mg twice daily Further recommendations to follow based upon clinical course Nurse practitioner note has been reviewed, I agree with documented findings and plan of care. Patient was seen and examined. Objective - Vital Signs Vital signs: Vital Signs Temp 97.5 F L 04/24/23 08:07 Pulse 74 04/24/23 08:07 Resp 16 04/24/23 08:07 BP 172/97 04/24/23 08:07 Pulse Ox 96 04/24/23 08:07 FiO2 Intake & Output 04/23/23 04/24/23 04/24/23 18:59 06:59 18:59 Intake Total 130 Output Total 920 Balance 130 -920 Weight 79.379 kg Intake: Intake, IV Titration 130 Amount Sodium Chloride 0.9% 1, 130 000 ml @ 130 mls/hr IV . Q7H42M [facility] Rx#:[id number] Output: Urine 920 Uretheral (Long) 500 Other: Voiding Method Indwelling Catheter - Labs CBC & Chem 7: 04/24/23 07:24 04/23/23 04:54 Labs: Microbiology - Last 24 Hours (Table) 04/22/23 20:47 Urine Culture - Preliminary Urine,Voided Gram Neg Bacilli 04/22/23 22:10 Blood Culture Gram Stain - Preliminary Blood
[2023-04-24 09:52] LABS: African American GFR (CKD) >90 (>60 ml/min/1.73 sqM); Anion Gap 8 mmol/L; Blood Urea Nitrogen 22 mg/dL (9-20); Calcium 8.6 mg/dL (8.4-10.2); Carbon Dioxide 20 mmol/L (22-30); Chloride 106 mmol/L (98-107); Glucose 113 mg/dL (74-99); Magnesium 1.9 mg/dL (1.6-2.3); Non-African American GFR(CKD) 79 (>60 ml/min/1.73 sqM); Potassium 4.3 mmol/L (3.5-5.1); Sodium 134 mmol/L (137-145)
--- NOTE | 2023-04-24 10:26 | P.PN ---
Subjective Progress Note Date: 04/24/23 The patient is in the hospital with urinary tract infection with sepsis. He is feeling better this morning. His daughter is bedside and I'm able to converse with her about his past medical history including his prostate cancer. Catheter has been removed. Objective - Vital Signs Vital signs: Vital Signs Temp 97.5 F L 04/24/23 08:07 Pulse 74 04/24/23 08:07 Resp 16 04/24/23 08:07 BP 172/97 04/24/23 08:07 Pulse Ox 96 04/24/23 08:07 FiO2 Intake & Output 04/23/23 04/24/23 04/24/23 18:59 06:59 18:59 Intake Total 130 Output Total 920 Balance 130 -920 Weight 79.379 kg Intake: Intake, IV Titration 130 Amount Sodium Chloride 0.9% 1, 130 000 ml @ 130 mls/hr IV . Q7H42M [facility]ES [facility] Rx#:[id number] Output: Urine 920 Uretheral (Long) 500 Other: Voiding Method Indwelling Catheter Toilet - Labs CBC & Chem 7: 04/24/23 07:24 04/24/23 07:24 Labs: Abnormal Lab Results - Last 24 Hours (Table) 04/24/23 04/24/23 Range/Units 07:24 07:24 WBC 15.1 H (3.8-10.6) k/uL Neutrophils # 12.6 H (1.3-7.7) k/uL Sodium 134 L (137-145) mmol/L Carbon Dioxide 20 L (22-30) mmol/L BUN 22 H (9-20) mg/dL Glucose 113 H (74-99) mg/dL Microbiology - Last 24 Hours (Table) 04/22/23 22:10 Blood Culture Gram Stain - Preliminary Blood Blood Culture - Preliminary Gram Neg Bacilli 04/22/23 20:47 Urine Culture - Preliminary Urine,Voided Gram Neg Bacilli Assessment and Plan Assessment: Impression: Recurrent urinary tract infection with sepsis. Enlarged prostate. History of prostate cancer diagnosed at the [facility]. Minimal ur ologic follow-up. Recommendations: The urinary tract infection with sepsis is being treated pending cultures. Due to his large prostate and recurrence of the disease he should be treated as prostatitis with an extended course of oral antibiotics otherwise expect recurrence will come back. With regard to his voiding depending on how he voids this morning as to whether catheter in need to be repl aced. With regards to his prostate cancer this will need to be reassessed as an outpatient as he has not had any evaluation for several years. A PSA at this point in time would be probably artificially high in light of the infection. He was last seen in our office in 2018 and at that point time his PSA was between 30 and 40. This is felt at the OM due to his very large prostate. Metastatic cancer he had was minimal. I discussed at length with the patient and his daughter about further evaluation and treatment. Immediately antibiotics for the prostate infection should continue and he should remain on antibiotics at least one month. He should follow-up in the office where he will need reassessment of his prostate cancer supposed to determine whether any treatment would be indicated. Regards to his urination if he is unable to urinate a catheter can be replaced. If he voids a post residual scan should be obtained to make sure he is emptying adequately.
--- NOTE | 2023-04-24 14:26 | P.PN ---
Subjective Progress Note Date: 04/24/23 Hospital course: Patient is a 87-year-old male with a PMH of prostate cancer, BPH, and large B- cell lymphoma treated with chemotherapy in 2009. He presented to the emergency department on 04/22/2023 with complaints of generalized weakness and confusion. He underwent full evaluation in the emergency department. Vital signs upon arrival show blood pressure 81/52, heart rate 125, respiratory rate 18, temp 98.0 F, and SpO2 of 98% on room air. CT abdomen pelvis and revealed severe prostatomegaly 8 cm increased from 7.5 in 2017 along with findings consistent of cystitis with emphysematous cystitis not excluded along with soft tissue th ickening at the hepatic flexure, recommended direct visualization to exclude neoplasm. Chest CTA was negative for noted large central pulmonary emboli revealing mild to moderate bronchial wall thickening with aneurysmal ascending aorta measuring 4.[address] brain revealed no acute abnormalities. EKG revealed A-fib with RVR at 137 bpm with a right bundle branch block . Laboratory evaluation was remarkable for lactic acid 2.8, UA consistent with UTI, Troponin was elevated at 0.098, WBC count 19.3, magnesium 1.4, lactic acid 2.8. Patient started on IV ceftriaxone. He was admitted under our services with consultation to cardiology and urology. Troponins trended resulting at 0.098, 0.234, and 0.244. Echocardiogram was completed showing preserved EF of 55 to 60% with mild mitral regurgitation and trace tricuspid regurgitation. Physical exam: Patient seen and fully evaluated at bedside this morning. Bladder scan was comp leted greater than 500 cc of urinary retention. Per recommendations of urologist Long catheter is being reinserted at this time. Patient and patient's daughter at bedside updated on this plan and all questions answered at this time. Patient otherwise denies having any complaints at this time. R eports having a rough night because he constantly had the urge to urinate but was unable to successfully empty his bladder. Patient and patient's daughter requesting sleeping pill for patient to get some rest tonight. Orders placed. Patient denies any other needs. Vital signs reviewed and stable. General: Nontoxic, no distress and appears stated age. Derm: Skin warm and dry, normal coloration for ethnicity. Head: Atraumatic, normocephalic and symmetric. Eyes: EOMs intact, no lid lag, and anicteric sclera Mouth: no lip lesions, mucus membranes moist Cardiovascular: Irregularly irregular with normal S1S2, soft systolic murmur, positive posterior tibial pulses bilaterally, and cap refill < 2 seconds. Lungs: Respirations even, regular, and unlabored on room air. Lungs CTA bilaterally, no rhonchi, no rales, no wheezing, and no accessory muscle usage. Abdominal: soft, nontender to palpation, no guarding, no appreciable organomegaly Ext: ROM intact. No gross muscle atrophy, no edema, no contractures Neuro: Speech clear, face symmetrical and CN II-XII grossly intact with no noted focal neuro deficits Psych: Alert and oriented to person, place, time, and situation. Appropriate and pleasant affect. 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 Lactic acidosis, resolved. -Preliminary blood cultures positive for gram-negative bacilli -Preliminary urine culture also positive for gram-negative bacilli -Decrease normal saline infusion to 75 cc/h. -Continue IV ceftriaxone 2 g every 24 hours -Urology following, discussed plan of care, secondary to patient's persistent urinary retention recommending reinsertion of Long catheter. -Cardiology following, reviewed documentation in chart stating continue amiodarone 200 mg twice daily and Eliquis 5 mg twice daily -Echocardiogram was completed showing preserved EF of 55 to 60% with mild mitral regurgitation and trace tricuspid regurgitation. -Encephalopathy likely in the setting of sepsis secondary to bacteremia and UTI -Repeat CBC, BMP and magnesium Data and imaging reviewed: Echocardiogram was completed and report reviewed showing preserved EF of 55 to 60% with mild mitral regurgitation and trace tricuspid regurgitation. Morning labs completed and reviewed. CBC showing improvement of leukocytosis with WBC count decreasing from 22.8 down to 15.1. BMP showing sodium 134, bicarb 20, BUN 22, and glucose of 113. Magnesium normal findings at 1.9. Vital signs reviewed. Blood pressure 109/57, heart rate 91, respiratory rate 16, temp 97.9 F, and SpO2 of 94% on room air. CODE STATUS: DNR/DNI DVT prophylaxis: Eliquis Anticipated discharge date: Clinical course to determine Anticipated discharge place: Clinical course to determine Patient was seen independently by Nurse Pracitioner. This document was prepared using [employer] dictation software. Please allow for errors in intensive care nurse, while rare they do occur. This patient was seen independently by Inés ROSENBERG. I agree with the assessment and plan done by my colleague. Objective - Vital Signs Vital signs: Vital Signs Temp 97.5 F L 04/24/23 08:07 Pulse 74 04/24/23 08:07 Resp 16 04/24/23 08:07 BP 172/97 04/24/23 08:07 Pulse Ox 96 04/24/23 08:07 FiO2 Intake & Output 04/23/23 04/24/23 04/24/23 18:59 06:59 18:59 Intake Total 130 Output Total 920 Balance 130 -920 Weight 79.379 kg Intake: Intake, IV Titration 130 Amount Sodium Chloride 0.9% 1, 130 000 ml @ 130 mls/hr IV . Q7H42M [facility] Rx#:[id number] Output: Urine 920 Uretheral (Long) 500 Other: Voiding Method Indwelling Catheter - Labs CBC & Chem 7: 04/25/23 09:15 04/25/23 09:15 Labs: Microbiology - Last 24 Hours (Table) 04/22/23 22:10 Blood Culture Gram Stain - Preliminary Blood Blood Culture - Preliminary Gram Neg Bacilli 04/22/23 20:47 Urine Culture - Preliminary Urine,Voided Gram Neg Bacilli
[2023-04-24] MEDS: ALPRAZolam 0.5 MG TAB PO SCH (20:53)
--- NOTE | 2023-04-25 09:11 | P.PN ---
Subjective HISTORY OF PRESENT ILLNESS: This is an 87-year-old male with no previous cardiac history. He has a past medical history of large B-cell lymphoma status postchemotherapy in 2010, PE. We have been asked to evaluate the patient for non-ST elevated myocardial infarction and new onset of atrial fibrillation. Patient presented to the hospital due to weakness. Patient denies having any chest pain, palpitations. He is unable to provide reliable history due to underlying dementia. EKG #1 sinus rhythm, #2 A-fib 137 bpm, right bundle branch block, telemetry now sinus rhythm Chest x-ray: Unable to exclude free intraperitoneal air. CT of the abdomen pelvis with contrast reveals no evidence of free intraperitoneal air. Annular soft tissue thickening of the hepatic flexure. Severe prostatomegaly. Distorted and irregular bladder lumen severe bladder wall trabeculations. CT angiogram of the chest suboptimal. No obvious large central pulmonary embolus. Mild to moderate bronchial wall thickening possible bronchitis or asthma. Aneurysmal ascending aorta with root measuring 4.4 cm and ascending portion measuring 4 cm. WBC 22.8, hemoglobin 9.9, platelet count 217. INR 1.1. Sodium 132, potassium 4.2, BUN 21 creatinine 0.84. Blood sugar 120. Troponins 0.098, 0.234, 0.244. Urinalysis positive for infection and blood. Influenza A, influenza B, RSV, COVID-19 not detected. Home cardiac medications: None 04/24 Patient is seen today on the cardiac stepdown unit. His mental status seems to be a little improved from yesterday. He is complaining of difficulty with urination. No complaints of chest pain, palpitations, shortness of breath lightheadedness or dizziness. Patient is currently in sinus rhythm. Blood pressure 148/75, heart rate 67, pulse ox 94% on room air. WBC 15.1, hemoglobin 13.3. Chemistry is pending. Echocardiogram reveals EF of 55 to 60%, mild mitral regurgitation, trace tricuspid regurgitation. 04/25/2023 Patient examined this morning at the bedside. Patient is complaining of back pain this morning. He denies any chest pain or pressure. He denies any shortness of breath. Vital signs are stable. Telemetry reveals sinus mechanism with a heart rate in the 60s. PHYSICAL EXAM: VITAL SIGNS: Reviewed. GENERAL: Well-developed in no acute distress. NECK: Supple. No JVD or thyromegaly LUNGS: Respirations even and unlabored. Lungs essentially clear to auscultation bilaterally. HEART: Regular rate and rhythm. S1 and S2 heard. EXTREMITIES: Normal range of motion. No clubbing or cyanosis. Peripheral pulses intact. No lower extremity edema ASSESSMENT: New onset paroxysmal atrial fibrillation, currently maintaining sinus mechanism Weakness UTI and sepsis Non-ST elevated myocardial infarction type II due to oxygen demand mismatch from sepsis History of large B-cell lymphoma PLAN: Continue current cardiac medications Continue telemetry monitoring Further recommendations pending patient course Nurse practitioner note has been reviewed by physician. Signing provider agrees with the documented findings, assessment, and plan of care documented by BOARD HANDLER as a scribe. Objective - Vital Signs Vital signs: Vital Signs Temp 97.6 F 04/25/23 07:42 Pulse 55 L 04/25/23 07:42 Resp 16 04/25/23 07:42 BP 131/73 04/25/23 07:42 Pulse Ox 97 04/25/23 07:42 FiO2 Intake & Output 04/24/23 04/25/23 04/25/23 18:59 06:59 18:59 Intake Total 118 900 Output Total 1700 903 Balance -1582 -3 Intake: Oral 118 900 Output: Urine 1700 900 Stool 3 Other: Voiding Method Toilet Indwelling Catheter - Labs CBC & Chem 7: 04/24/23 07:24 04/24/23 07:24 Labs: Abnormal Lab Results - Last 24 Hours (Table) 04/24/23 Range/Units 07:24 Sodium 134 L (137-145) mmol/L Carbon Dioxide 20 L (22-30) mmol/L BUN 22 H (9-20) mg/dL Glucose 113 H (74-99) mg/dL Microbiology - Last 24 Hours (Table) 04/22/23 20:47 Urine Culture - Final Urine,Voided Klebsiella pneumoniae 04/23/23 10:29 Blood Culture - Preliminary Blood 04/22/23 22:10 Blood Culture Gram Stain - Preliminary Blood Blood Culture - Preliminary Gram Neg Bacilli
[2023-04-25 09:25] LABS: HCT 35.5 % (39.0-53.0); HGB 11.7 gm/dL (13.0-17.5); MCH 30.8 pg (25.0-35.0); MCHC 32.9 g/dL (31.0-37.0); MCV 93.5 fL (80.0-100.0); Mean Platelet Volume 8.2; Platelet Count 181 k/uL (150-450); RDW 14.4 % (11.5-15.5); WBC 7.2 k/uL (3.8-10.6)
[2023-04-25 09:38] LABS: ALT 17 U/L (4-49); AST 30 U/L (17-59); African American GFR (CKD) >90 (>60 ml/min/1.73 sqM); Albumin 2.8 g/dL (3.5-5.0); Alkaline Phosphatase 61 U/L (38-126); Anion Gap 6 mmol/L; Blood Urea Nitrogen 13 mg/dL (9-20); Calcium 8.3 mg/dL (8.4-10.2); Carbon Dioxide 21 mmol/L (22-30); Chloride 111 mmol/L (98-107); Globulin 2.8 g/dL; Glucose 130 mg/dL (74-99); Magnesium 1.9 mg/dL (1.6-2.3); Non-African American GFR(CKD) 83 (>60 ml/min/1.73 sqM); Potassium 3.7 mmol/L (3.5-5.1); Sodium 138 mmol/L (137-145); Total Bilirubin 0.4 mg/dL (0.2-1.3); Total Protein 5.6 g/dL (6.3-8.2)
--- NOTE | 2023-04-25 13:07 | P.PN ---
Subjective Progress Note Date: 04/25/23 Hospital course: Patient is a 87-year-old male with a PMH of prostate cancer, BPH, and large B- cell lymphoma treated with chemotherapy in 2009. He presented to the emergency department on 04/22/2023 with complaints of generalized weakness and confusion. He underwent full evaluation in the emergency department. Vital signs upon arrival show blood pressure 81/52, heart rate 125, respiratory rate 18, temp 98.0 F, and SpO2 of 98% on room air. CT abdomen pelvis and revealed severe prostatomegaly 8 cm increased from 7.5 in 2017 along with findings consistent of cystitis with emphysematous cystitis not excluded along with soft tissue th ickening at the hepatic flexure, recommended direct visualization to exclude neoplasm. Chest CTA was negative for pulmonary emboli revealing mild to moderate bronchial wall thickening with aneurysmal ascending aorta measuring 4.[address] brain revealed no acute abnormalities. EKG revealed A-fib with RVR at 137 bpm with a right bundle branch block . Laboratory evaluation was remarkable for lactic acid 2.8, UA consistent with UTI, Troponin was elevated at 0.098, WBC count 19.3, magnesium 1.4, lactic acid 2.8. Patient started on IV ceftriaxone. He was admitted under our services with consultation to cardiology and urology. Troponins trended resulting at 0.098, 0.234, and 0.244. Echocardiogram was completed showing preserved EF of 55 to 60% with mild mitral regurgitation and trace tricuspid regurgitation. Physical exam: Patient seen and fully evaluated at bedside this morning. He was visiting at bedside with family. Currently patient denies having any pain or complaints at this time. Long catheter remains in place to dependent drainage. Vital signs reviewed and stable. General: Nontoxic, no distress and appears stated age. Derm: Skin warm and dry, normal coloration for ethnicity. Head: Atraumatic, normocephalic and symmetric. Eyes: EOMs intact, no lid lag, and anicteric sclera Mouth: no lip lesions, mucus membranes moist Cardiovascular: Irregularly irregular with normal S1S2, soft systolic murmur, positive posterior tibial pulses bilaterally, and cap refill < 2 seconds. Lungs: Respirations even, regular, and unlabored on room air. Lungs CTA bilaterally, no rhonchi, no rales, no wheezing, and no accessory muscle usage. Abdominal: soft, nontender to palpation, no guarding, no appreciable org anomegaly Ext: ROM intact. No gross muscle atrophy, no edema, no contractures Neuro: Speech clear, face symmetrical and CN II-XII grossly intact with no noted focal neuro deficits Psych: Alert and oriented to person, place, time, and situation. Appropriate and pleasant affect. 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 History of prostate cancer with severe prostamegaly Concerns of possible colonic mass and recurrent B-cell lymphoma Atrial fibrillation with RVR, newly diagnosed, now rate controlled NSTEMI, likely type II DC resulting from demand ischemia from RVR Aneurysmal ascending aorta, 4.4 cm -Preliminary blood cultures positive for gram-negative bacilli, suspected source is UTI -Urine culture positive for Klebsiella pneumoniae -Infectious disease consulted as patient will need prolonged course of antibiotics, likely DC home on Ceftin 500 mg twice daily for an additional 10 days -Hyponatremia resolved, fluid hydration discontinued. -Continue IV ceftriaxone 2 g every 24 hours pending final blood culture results -Urology following, patient with persistent urinary retention possibly secondary to severe prostatomegaly, requiring reinsertion of Long catheter. -General surgery consulted for evaluation of possible colonoscopy secondary to persistent urinary retention which can possibly be secondary to severe prostatomegaly however CT abdomen and pelvis revealing soft tissue thickening of hepatic flexure unable to exclude colonic neoplasm, recommending direct visu alization -Cardiology following, reviewed documentation in chart stating continue amiodarone 200 mg twice daily and Eliquis 5 mg twice daily -Echocardiogram was completed showing preserved EF of 55 to 60% with mild mitral regurgitation and trace tricuspid regurgitation. -Encephalopathy likely in the setting of sepsis secondary to bacteremia and UTI and has resolved Acute metabolic encephalopathy, resolved Hypomagnesemia, resolved. Lactic acidosis, resolved. Leukocytosis, resolved Prerenal azotemia, resolved Data and imaging reviewed: Morning labs completed and reviewed. CBC showing resolution of leukocytosis with WBC count of 7.2 from previous 22.8 and persistent but stable normocytic anemia with hemoglobin of 11.7. BMP showing resolution of hyponatremia with sodium of 138, resolution of prerenal azotemia with BUN of 13 and mild hyperchloremia with chloride of 111. Normal saline infusion discontinued at this time. Vital signs reviewed. Blood pressure 131/73, heart rate 55, respiratory rate 16, temp 97.6 F, and SpO2 of 97% on room air. CODE STATUS: DNR/DNI DVT prophylaxis: Eliquking Anticipated discharge date: Clinical course to determine Anticipated discharge place: Clinical course to determine Patient was seen independently by Nurse Pracitioner. This document was prepared using [employer] dictation software. Please allow for errors in working manager, while rare they do occur. This patient was seen independently by Inés DIRECTOR TRAFFIC AND PLANNING. I agree with the assessment and plan done by my colleague. Objective - Vital Signs Vital signs: Vital Signs Temp 97.6 F 04/25/23 07:42 Pulse 55 L 04/25/23 07:42 Resp 16 04/25/23 07:42 BP 131/73 04/25/23 07:42 Pulse Ox 97 04/25/23 07:42 FiO2 Intake & Output 04/24/23 04/25/23 04/25/23 18:59 06:59 18:59 Intake Total 118 900 Output Total 1700 903 Balance -1582 -3 Intake: Oral 118 900 Output: Urine 1700 900 Stool 3 Other: Voiding Method Toilet Indwelling Catheter - Labs CBC & Chem 7: 04/25/23 09:15 04/25/23 09:15 Labs: Abnormal Lab Results - Last 24 Hours (Table) 04/24/23 04/24/23 Range/Units 07:24 07:24 WBC 15.1 H (3.8-10.6) k/uL Neutrophils # 12.6 H (1.3-7.7) k/uL Sodium 134 L (137-145) mmol/L Carbon Dioxide 20 L (22-30) mmol/L BUN 22 H (9-20) mg/dL Glucose 113 H (74-99) mg/dL Microbiology - Last 24 Hours (Table) 04/22/23 20:47 Urine Culture - Final Urine,Voided Klebsiella pneumoniae 04/23/23 10:29 Blood Culture - Preliminary Blood 04/22/23 22:10 Blood Culture Gram Stain - Preliminary Blood Blood Culture - Preliminary Gram Neg Bacilli
[2023-04-25] MEDS: ACETAMINOPHEN TAB 325 MG TAB PO PRN (14:20)
[2023-04-25] MEDS: PEG 3350 (236 GM/BTL) + LYTES 4,000 ML BOTTLE PO ONE (14:35)
--- NOTE | 2023-04-25 22:26 | P.CONS ---
History of Present Illness - Reason for Consult Consult date: 04/25/23 - History of Present Illness Patient is a 87-year-old male with a past medical history significant for large B-cell lymphoma history of prostate cancer apparently did have TURP prior to 2009 patient presented to the hospital 3 days ago for evaluation of weakness apparently patient did went to the urgent care had the patient was subsequently sent to the ER because of urine retention and the patient was noticed to be acting abnormal for few days before the patient was brought into the hospital patient denies high-grade fever or any chills denies any headache or URI symptoms no chest pain or shortness with occasional cough no nausea vomiting no abdominal pain or diarrhea patient apparently did have some dif ficulty urination and burning but denies any deep pelvic pain, patient did have retention when Long catheter placement on presentation to the hospital the patient was afebrile and no fever have been recorded subsequently patient was not tachycardic hypotensive or hypoxic patient did have a white count of 19,000 which is up to 22.8 did have a white count of 7.2 this morning, creatinine has been normal troponins were elevated liver isms are normal urine was positive for influenza RSV COVID testing was negative patient blood and urine has been positive for Klebsiella patient did have a CT of abdominal pelvis which did show some annular soft tissue thickening at the hepatic flexure of the colon severe prostatomegaly abnormal soft tissue thickening extending to the left bladder base concerning for possible malignancy markedly distorted and irregular bladder lumen with severe bladder wall fibrillation patient has been evaluated by urology concerning for possible prostatitis and want extensive course of antibiotic therapy patient is currently on Rocephin infectious was consulted today for further management of antibiotics Past Medical History Past Medical History: Cancer, Prostate Disorder Additional Past Medical History / Comment(s): 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 Prostate cancer History of Any Multi-Drug Resistant Organisms: None Reported Past Surgical History: Prostate Surgery Additional Past Surgical History / Comment(s): TURP prior to 2009 Past Anesthesia/Blood Transfusion Reactions: No Reported Reaction Past Psychological History: No Psychological Hx Reported Smoking Status: Never smoker Past Alcohol Use History: Rare Past Drug Use History: None Reported - Past Family History Father Family Medical History: Cancer, CVA/TIA Mother Family Medical History: No Reported History Medications and Allergies Home Medications Medication Instructions Recorded Confirmed Type No Known Home Medications 04/22/23 04/22/23 History Allergies Allergy/AdvReac Type Severity Reaction Status Date / Time No Known Allergies Allergy Verified 04/22/23 19:11 Physical Exam Vitals: Vital Signs Temp Pulse Resp BP Pulse Ox 04/25/23 12:10 97.6 F 63 17 132/76 96 04/25/23 07:42 97.6 F 55 L 16 131/73 97 04/25/23 01:59 98.2 F 67 20 129/70 96 04/24/23 23:58 97.9 F 67 20 147/78 97 04/24/23 20:00 98.3 F 67 16 118/70 97 04/24/23 15:36 97.3 F L 68 16 115/75 96 Intake and Output 04/25/23 04/25/23 04/25/23 06:59 14:59 22:59 Intake Total 900 Output Total 3 1900 Balance 897 -1900 Intake: Oral 900 Output: Urine 1900 Stool 3 Other: Voiding Method Indwelling Catheter Indwelling Catheter Results CBC & Chem 7: 04/25/23 09:15 04/25/23 09:15 Labs: Abnormal Lab Results - Last 24 Hours (Table) 04/25/23 04/25/23 Range/Units 09:15 09:15 RBC 3.80 L (4.30-5.90) m/uL Hgb 11.7 L (13.0-17.5) gm/dL Hct 35.5 L (39.0-53.0) % Chloride 111 H (98-107) mmol/L Carbon Dioxide 21 L (22-30) mmol/L Glucose 130 H (74-99) mg/dL Calcium 8.3 L (8.4-10.2) mg/dL Total Protein 5.6 L (6.3-8.2) g/dL Albumin 2.8 L (3.5-5.0) g/dL Microbiology - Last 24 Hours (Table) 04/22/23 22:10 Blood Culture Gram Stain - Final Blood Blood Culture - Final Klebsiella pneumoniae 04/22/23 20:47 Urine Culture - Final Urine,Voided Klebsiella pneumoniae 04/23/23 10:29 Blood Culture - Preliminary Blood Assessment and Plan Plan: 1patient presented to hospital with complicated UTI in this patient who do have a history of prostate cancer now with significant enlargement of the prostate and irregularity of the bladder indicating of bladder outlet obstruction patient urine and blood culture positive for Klebsiella indicating complicated UTI 2-we will continue patient on Rocephin 2 g daily while inpatient 3-patient will be offered 4 to 6-week course of oral Cipro versus Ceftin on discharge We will follow on clinical condition and cultures to further adjust medication if needed Thank you for this consultation we will follow the patient along with you Dictation was produced using [employer] software. please excuse any grammatical, word or spelling errors. Time with Patient: Greater than 30
[2023-04-26 09:12] LABS: HCT 35.5 % (39.6-50.0); HGB 11.6 g/dL (13.0-17.0); MCH 29.9 pg (27.0-32.0); MCHC 32.7 g/dL (32.0-37.0); MCV 91.5 FL (80.0-97.0); Mean Platelet Volume 10.4 FL (9.5-12.2); NRBC Per 100 WBC 0 X 10*3/uL (0.00-0.01); Platelet Count 206 X 10*3/uL (140-440); RBC 3.88 X 10*6/uL (4.40-5.60); RDW 14.5 % (11.5-14.5); WBC 7.18 X 10*3/uL (4.50-10.00)
[2023-04-26 09:17] LABS: ALT 18 U/L (10-49); AST 25 U/L (14-35); Albumin 3.1 g/dL (3.8-4.9); Albumin/Globulin Ratio 1.35 Ratio (1.60-3.17); Alkaline Phosphatase 62 U/L (41-126); Calcium 8.6 mg/dL (8.7-10.3); Carbon Dioxide 23.2 mmol/L (21.6-31.8); Chloride 107 mmol/L (96-109); Globulin 2.3 g/dL (1.6-3.3); Glucose 89 mg/dL (70-110); Magnesium 1.8 mg/dL (1.5-2.4); Potassium 3.6 mmol/L (3.5-5.5); Sodium 139 mmol/L (135-145); Total Bilirubin 0.3 mg/dL (0.3-1.2); Total Protein 5.4 g/dL (6.2-8.2)
--- NOTE | 2023-04-26 09:49 | P.PN ---
Subjective Progress Note Date: 04/26/23 HISTORY OF PRESENT ILLNESS: This is an 87-year-old male with no previous cardiac history. He has a past medical history of large B-cell lymphoma status postchemotherapy in 2010, PE. We have been asked to evaluate the patient for non-ST elevated myocardial infarction and new onset of atrial fibrillation. Patient presented to the hospital due to weakness. Patient denies having any chest pain, palpitations. He is unable to provide reliable history due to underlying dementia. EKG #1 sinus rhythm, #2 A-fib 137 bpm, right bundle branch block, telemetry now sinus rhythm Chest x-ray: Unable to exclude free intraperitoneal air. CT of the abdomen pelvis with contrast reveals no evidence of free intr aperitoneal air. Annular soft tissue thickening of the hepatic flexure. Severe prostatomegaly. Distorted and irregular bladder lumen severe bladder wall trabeculations. CT angiogram of the chest suboptimal. No obvious large central pulmonary embolus. Mild to moderate bronchial wall thickening possible bronchitis or asthma. Aneurysmal ascending aorta with root measuring 4.4 cm and ascending p ortion measuring 4 cm. WBC 22.8, hemoglobin 9.9, platelet count 217. INR 1.1. Sodium 132, potassium 4.2, BUN 21 creatinine 0.84. Blood sugar 120. Troponins 0.098, 0.234, 0.244. Urinalysis positive for infection and blood. Influenza A, influenza B, RSV, COVID-19 not detected. Home cardiac medications: None 04/24 Patient is seen today on the cardiac stepdown unit. His mental status seems to be a little improved from yesterday. He is complaining of difficulty with urination. No complaints of chest pain, palpitations, shortness of breath lightheadedness or dizziness. Patient is currently in sinus rhythm. Blood pressure 148/75, heart rate 67, pulse ox 94% on room air. WBC 15.1, hemoglobin 13.3. Chemistry is pending. Echocardiogram reveals EF of 55 to 60%, mild mitral regurgitation, trace tricuspid regurgitation. 04/25/2023 Patient examined this morning at the bedside. Patient is complaining of back pain this morning. He denies any chest pain or pressure. He denies any short ness of breath. Vital signs are stable. Telemetry reveals sinus mechanism with a heart rate in the 60s. 04/26 Patient denies any chest pain or chest tightness. No shortness of breath no palpitations. Blood pressure 119/73, heart rate 65, sats 96% on room air. PHYSICAL EXAM: VITAL SIGNS: Reviewed. GENERAL: Well-developed in no acute distress. NECK: Supple. No JVD or thyromegaly LUNGS: Respirations even and unlabored. Lungs essentially clear to auscultation bilaterally. HEART: Regular rate and rhythm. S1 and S2 heard. EXTREMITIES: No clubbing or cyanosis. Peripheral pulses intact. No lower extremity edema ASSESSMENT: New onset paroxysmal atrial fibrillation Weakness UTI and sepsis Non-ST elevated myocardial infarction type II due to oxygen demand mismatch from sepsis History of large B-cell lymphoma PLAN: Continue current cardiac medications Continue telemetry monitoring Cardiology will sign off this case and follow on an as-needed basis. Please reconsult for any new concerns. Patient may follow-up in the office with Dr. Juan M Chinchilla in one to 2 weeks. Nurse practitioner note has been reviewed by physician. Signing provider agrees with the documented findings, assessment, and plan of care documented by COOPER APPRENTICE as a scribe. Objective - Vital Signs Vital signs: Vital Signs Temp 97.7 F 04/26/23 08:00 Pulse 65 04/26/23 08:00 Resp 18 04/26/23 08:00 BP 119/73 04/26/23 08:00 Pulse Ox 96 04/26/23 08:00 FiO2 Intake & Output 04/25/23 04/26/23 04/26/23 18:59 06:59 18:59 Intake Total 950 Output Total 1900 3500 Balance -1900 -2550 Intake: Oral 950 Output: Urine 1900 3500 Other: Voiding Method Indwelling Catheter Indwelling Catheter # Bowel Movements 0 - Labs CBC & Chem 7: 04/26/23 05:03 04/26/23 05:03 Labs: Abnormal Lab Results - Last 24 Hours (Table) 04/25/23 04/25/23 Range/Units 09:15 09:15 RBC 3.80 L (4.30-5.90) m/uL Hgb 11.7 L (13.0-17.5) gm/dL Hct 35.5 L (39.0-53.0) % Chloride 111 H (98-107) mmol/L Carbon Dioxide 21 L (22-30) mmol/L Glucose 130 H (74-99) mg/dL Calcium 8.3 L (8.4-10.2) mg/dL Total Protein 5.6 L (6.3-8.2) g/dL Albumin 2.8 L (3.5-5.0) g/dL Microbiology - Last 24 Hours (Table) 04/23/23 10:29 Blood Culture - Preliminary Blood 04/22/23 22:10 Blood Culture Gram Stain - Final Blood Blood Culture - Final Klebsiella pneumoniae
[2023-04-26] MEDS: PEG 3350 (236 GM/BTL) + LYTES 4,000 ML BOTTLE PO ONE (12:37)
--- NOTE | 2023-04-26 14:58 | P.GSCN ---
History of Present Illness Consult date: 04/26/23 History of present illness: CHIEF COMPLAINT: Weakness HISTORY OF PRESENT ILLNESS: This is a 87-year-old male who presented to the hospital with complaints of weakness. He was found to have evidence of UTI with bacteremia, non-ST elevated TX type II and new onset of atrial fibrillation. Patient has a known history of prostate cancer and had undergone chemotherapy in 2009. He has a Long catheter in place followed by urology. Does have hematuria present. Surgical service is consulted to rule out a colonic mass. CT scan reported annular soft tissue thickening at the hepatic flexure of the colon. Direct visualization when patient able to exclude underlying neoplasm. Patient has never had a colonoscopy. Denies abdominal pain. Denies any blood in his stools. 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 PAST SURGICAL HISTORY: TURP MEDICATIONS: See below ALLERGIES: See below SOCIAL HISTORY: No illicit drug use. REVIEW OF SYSTEMS: CONSTITUTIONAL: Denies fever or chills. HEENT: Denies blurred vision, vision changes, or eye pain. Denies hemoptysis CARDIOVASCULAR: Denies chest pain or pressure. RESPIRATORY: No shortness of breath. GASTROINTESTINAL: See HPI for pertinent findings HEMATOLOGIC: Denies bleeding disorders. GENITOURINARY: Denies any blood in urine or increased urinary frequency. SKIN: Denies pruitis. Denies rash. PHYSICAL EXAM: VITAL SIGNS: Reviewed GENERAL: Well-developed in no acute distress. HEENT: No sclera icterus. Extraocular movements grossly intact. Moist buccal mucosa. Head is atraumatic, normocephalic. No nasal drainage. ABDOMEN: Soft. Nondistended. Nontender NEUROLOGIC: Alert and oriented. Cranial nerves II through XII grossly intact. LABORATORY DATA: WBC 7.18 Hgb 13.3 down to 11.6 platelets 206 Sodium is 139 potassium 3.6 creatinine 0.8 Positive blood culture and urine culture with Klebsiella pneumoniae IMAGING: CT scan abdomen and pelvis no evidence for free intraperitoneal air. Annular soft tissue thickening at the hepatic flexure of the colon. Severe prostamegaly up to 8 cm wide. Abnormal soft tissue thickening extends into the left bladder base. Correlate with urine cytology and PSA values to exclude prostate cancer or urethral neoplasm. Irregular bladder lumen. ASSESSMENT: 1. Soft tissue thickening of the hepatic flexure of the colon noted on CT scan 2. UTI with bacteremia 3. Prostate cancer history 4. Urinary retention PLAN: -Colonoscopy scheduled for tomorrow with Dr. Melgar. Initially patient and family had declined colonoscopy. However, now they are willing to proceed with colonoscopy. -Start GoLytely bowel prep -Continue clear liquid diet today -N.p.o. after midnight -Hold Eliquis for colonoscopy Thank you for this consultation Physician Psychiatric Therapist note has been reviewed by physician. Signing provider agrees with the documented findings, assessment, and plan of care. 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 Prostate cancer History of Any Multi-Drug Resistant Organisms: None Reported Past Surgical History: Prostate Surgery Additional Past Surgical History / Comment(s): TURP prior to 2009 Past Anesthesia/Blood Transfusion Reactions: No Reported Reaction Past Psychological History: No Psychological Hx Reported Smoking Status: Never smoker Past Alcohol Use History: Rare Past Drug Use History: None Reported - Past Family History Father Family Medical History: Cancer, CVA/TIA Mother Family Medical History: No Reported History Medications and Allergies Home Medications Medication Instructions Recorded Confirmed Type No Known Home Medications 04/22/23 04/22/23 History Allergies Allergy/AdvReac Type Severity Reaction Status Date / Time No Known Allergies Allergy Verified 04/22/23 19:11 Surgical - Exam Vital Signs Temp Pulse Resp BP Pulse Ox 98 F 125 H 18 81/52 98 04/22/23 17:33 04/22/23 17:33 04/22/23 17:33 04/22/23 17:33 04/22/23 17:33 Results - Labs 04/26/23 05:03 04/26/23 05:03 Abnormal Lab Results - Last 24 Hours (Table) 04/26/23 04/26/23 Range/Units 05:03 05:03 RBC 3.88 L (4.40-5.60) X 10*6/uL Hgb 11.6 L (13.0-17.0) g/dL Hct 35.5 L (39.6-50.0) % Calcium 8.6 L (8.7-10.3) mg/dL Total Protein 5.4 L (6.2-8.2) g/dL Albumin 3.1 L (3.8-4.9) g/dL Albumin/Globulin Ratio 1.35 L (1.60-3.17) Ratio Microbiology - Last 24 Hours (Table) 04/23/23 10:29 Blood Culture - Preliminary Blood 04/22/23 22:10 Blood Culture Gram Stain - Final Blood Blood Culture - Final Klebsiella pneumoniae Diabetes panel 04/26/23 Range/Units 05:03 Sodium 139 (135-145) mmol/L Potassium 3.6 (3.5-5.5) mmol/L Chloride 107 (96-109) mmol/L Carbon Dioxide 23.2 (21.6-31.8) mmol/L BUN 12.0 (9.0-27.0) mg/dL Creatinine 0.8 (0.6-1.5) mg/dL Glucose 89 (70-110) mg/dL Calcium 8.6 L (8.7-10.3) mg/dL AST 25 (14-35) U/L ALT 18 (10-49) U/L Alkaline Phosphatase 62 (41-126) U/L Total Protein 5.4 L (6.2-8.2) g/dL Albumin 3.1 L (3.8-4.9) g/dL Calcium panel 04/26/23 Range/Units 05:03 Calcium 8.6 L (8.7-10.3) mg/dL Albumin 3.1 L (3.8-4.9) g/dL Pituitary panel 04/26/23 Range/Units 05:03 Sodium 139 (135-145) mmol/L Potassium 3.6 (3.5-5.5) mmol/L Chloride 107 (96-109) mmol/L Carbon Dioxide 23.2 (21.6-31.8) mmol/L BUN 12.0 (9.0-27.0) mg/dL Creatinine 0.8 (0.6-1.5) mg/dL Glucose 89 (70-110) mg/dL Calcium 8.6 L (8.7-10.3) mg/dL Adrenal panel 04/26/23 Range/Units 05:03 Sodium 139 (135-145) mmol/L Potassium 3.6 (3.5-5.5) mmol/L Chloride 107 (96-109) mmol/L Carbon Dioxide 23.2 (21.6-31.8) mmol/L BUN 12.0 (9.0-27.0) mg/dL Creatinine 0.8 (0.6-1.5) mg/dL Glucose 89 (70-110) mg/dL Calcium 8.6 L (8.7-10.3) mg/dL Total Bilirubin 0.3 (0.3-1.2) mg/dL AST 25 (14-35) U/L ALT 18 (10-49) U/L Alkaline Phosphatase 62 (41-126) U/L Total Protein 5.4 L (6.2-8.2) g/dL Albumin 3.1 L (3.8-4.9) g/dL
--- NOTE | 2023-04-26 14:58 | P.PN ---
Subjective Progress Note Date: 04/26/23 Hospital course: Patient is a 87-year-old male with a PMH of prostate cancer, BPH, and large B- cell lymphoma treated with chemotherapy in 2009. He presented to the emergency department on 04/22/2023 with complaints of generalized weakness and confusion. He underwent full evaluation in the emergency department. Vital signs upon arrival show blood pressure 81/52, heart rate 125, respiratory rate 18, temp 98.0 F, and SpO2 of 98% on room air. CT abdomen pelvis and revealed severe prostatomegaly 8 cm increased from 7.5 in 2017 along with findings consistent of cystitis with emphysematous cystitis not excluded along with soft tissue th ickening at the hepatic flexure, recommended direct visualization to exclude neoplasm. Chest CTA was negative for pulmonary emboli revealing mild to moderate bronchial wall thickening with aneurysmal ascending aorta measuring 4.[address] brain revealed no acute abnormalities. EKG revealed A-fib with RVR at 137 bpm with a right bundle branch block . Laboratory evaluation was remarkable for lactic acid 2.8, UA consistent with UTI, Troponin was elevated at 0.098, WBC count 19.3, magnesium 1.4, lactic acid 2.8. Patient started on IV ceftriaxone. He was admitted under our services with consultation to cardiology and urology. Troponins trended resulting at 0.098, 0.234, and 0.244. Echocardiogram was completed showing preserved EF of 55 to 60% with mild mitral regurgitation and trace tricuspid regurgitation. Physical exam: Patient seen and fully evaluated at bedside this morning. He was visiting at bedside with family. He appears to be doing well and denies any complaints. Further discussed findings of CT showing soft tissue thickening at the hepatic flexure and unable to rule out neoplasm to CT and that it would need to be diagnosed via direct visualization via colonoscopy. Patient and family thoroughly discussed and are now requesting to undergo colonoscopy. General surgeon notified. Patient currently patient denies having any other pain or complaints at this time. Long catheter remains in place to dependent drainage. Patient with small amount of hematuria today, likely secondary to irritation/pulling of Long catheter. Will monitor. Vital signs reviewed and stable. General: Nontoxic, no distress and appears stated age. Derm: Skin warm and dry, normal coloration for ethnicity. Head: Atraumatic, normocephalic and symmetric. Eyes: EOMs intact, no lid lag, and anicteric sclera Mouth: no lip lesions, mucus membranes moist Cardiovascular: Irregularly irregular with normal S1S2, soft systolic murmur, positive posterior tibial pulses bilaterally, and cap refill < 2 seconds. Lungs: Respirations even, regular, and unlabored on room air. Lungs CTA bilaterally, no rhonchi, no rales, no wheezing, and no accessory muscle usage. Long catheter to dependent drainage. Abdominal: soft, nontender to palpation, no guarding, no appreciable organomegaly Ext: ROM intact. No gross muscle atrophy, no edema, no contractures Neuro: Speech clear, face symmetrical and CN II-XII grossly intact with no noted focal neuro deficits Psych: Alert and oriented to person, place, time, and situation. Appropriate and pleasant affect. 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 -Hyponatremia resolved, fluid hydration discontinued. -Continue IV ceftriaxone 2 g every 24 hours pending final blood culture results -Urology following, patient with persistent urinary retention possibly secondary to severe prostatomegaly, requiring reinsertion of Long catheter. -General surgery consulted for evaluation and taking patient for colonoscopy tomorrow. -Cardiology following, reviewed documentation in chart stating continue amiodarone 200 mg twice daily and Eliquis 5 mg twice daily -Echocardiogram was completed showing preserved EF of 55 to 60% with mild mitral regurgitation and trace tricuspid regurgitation. -Encephalopathy likely in the setting of sepsis secondary to bacteremia and UTI and has resolved Acute metabolic encephalopathy, resolved Hypomagnesemia, resolved. Lactic acidosis, resolved. Leukocytosis, resolved Prerenal azotemia, resolved Data and imaging reviewed: Morning labs completed and reviewed. CBC showing stable normocytic anemia with hemoglobin of 11.6. BMP unremarkable. Magnesium 1.8. Vital signs reviewed. Blood pressure 119/73, heart rate 65, respiratory rate 18, temp 97.7 F, and SpO2 of 96% on room air. CODE STATUS: DNR/DNI DVT prophylaxis: Eliquis held pending completion of colonoscopy. Anticipated discharge date: Clinical course to determine Anticipated discharge place: Clinical course to determine Patient was seen independently by Nurse Pracitioner. This document was prepared using [employer] dictation software. Please allow for errors in yarding and folding machine operator, while rare they do occur. This patient was seen independently by my colleague Inés ROSENBERG. I agree with the assessment and plan. Objective - Vital Signs Vital signs: Vital Signs Temp 97.7 F 04/26/23 08:00 Pulse 65 04/26/23 08:00 Resp 18 04/26/23 08:00 BP 119/73 04/26/23 08:00 Pulse Ox 96 04/26/23 08:00 FiO2 Intake & Output 04/25/23 04/26/23 04/26/23 18:59 06:59 18:59 Intake Total 950 Output Total 1900 3500 Balance -1900 -2550 Intake: Oral 950 Output: Urine 1900 3500 Other: Voiding Method Indwelling Catheter Indwelling Catheter # Bowel Movements 0 - Labs CBC & Chem 7: 04/27/23 07:38 04/27/23 07:38 Labs: Abnormal Lab Results - Last 24 Hours (Table) 04/25/23 04/25/23 Range/Units 09:15 09:15 RBC 3.80 L (4.30-5.90) m/uL Hgb 11.7 L (13.0-17.5) gm/dL Hct 35.5 L (39.0-53.0) % Chloride 111 H (98-107) mmol/L Carbon Dioxide 21 L (22-30) mmol/L Glucose 130 H (74-99) mg/dL Calcium 8.3 L (8.4-10.2) mg/dL Total Protein 5.6 L (6.3-8.2) g/dL Albumin 2.8 L (3.5-5.0) g/dL Microbiology - Last 24 Hours (Table) 04/23/23 10:29 Blood Culture - Preliminary Blood 04/22/23 22:10 Blood Culture Gram Stain - Final Blood Blood Culture - Final Klebsiella pneumoniae 04/22/23 20:47 Urine Culture - Final Urine,Voided Klebsiella pneumoniae
[2023-04-26] MEDS: SODIUM CHLORIDE 0.9% 1,000 ML IV SCH (15:07)
[2023-04-26] MEDS: ONDANSETRON 4 MG/2 ML VIAL IVP PRN (17:34)
[2023-04-26] MEDS: PANTOPRAZOLE 40 MG/10 ML VIAL IVP ONE (22:35)
[2023-04-26 23:59] LABS: HCT 34.9 % (39.0-53.0); HGB 11.4 gm/dL (13.0-17.5); MCH 30.6 pg (25.0-35.0); MCHC 32.7 g/dL (31.0-37.0); MCV 93.4 fL (80.0-100.0); Mean Platelet Volume 7.6; Platelet Count 215 k/uL (150-450); RBC 3.74 m/uL (4.30-5.90); WBC 6.9 k/uL (3.8-10.6)
[2023-04-27 03:28] LABS: Lymphocytes # (M) 1.24 k/uL (1.0-4.8); Monocytes # (M) 0.69 k/uL (0-1.0); Neutrophils # (M) 4.97 k/uL (1.3-7.7); Neutrophils % (M) 72 %; Nucleated Red Blood Cells 0 /100 WBC (0-0); Total Cells Counted 100
[2023-04-27] MEDS: PANTOPRAZOLE 40 MG/10 ML VIAL IVP SCH (09:56)
--- NOTE | 2023-04-27 12:14 | P.PN ---
Subjective Progress Note Date: 04/26/23 Principal diagnosis: Reason for follow-up is complicated UTI and bacteremia Patient is a 87-year-old male with a past medical history significant for large B-cell lymphoma history of prostate cancer apparently did have TURP prior to 2009 patient presented to the hospital for evaluation of weakness patient was noted to be septic secondary to complicated UTI with a blood and urine culture positive for Klebsiella. On today's evaluation that is 04/26/2023,the patient remains to be afebrile, patient is on room air not requiring supplemental oxygen and denies any short ness of breath no chest pain or cough.Patient denies having any nausea or vomiting, no abdominal pain and no diarrhea has been reported. Patient white count is 7.18, creatinine 0.8 blood culture repeat so far pending Objective - Vital Signs Vital signs: Vital Signs Temp 97.7 F 04/26/23 08:00 Pulse 65 04/26/23 08:00 Resp 18 04/26/23 08:00 BP 119/73 04/26/23 08:00 Pulse Ox 96 04/26/23 08:00 FiO2 Intake & Output 04/25/23 04/26/23 04/26/23 18:59 06:59 18:59 Intake Total 950 Output Total 1900 3500 700 Balance -1900 -2550 -700 Intake: Oral 950 Output: Urine 1900 3500 700 Other: Voiding Method Indwelling Catheter Indwelling Catheter Indwelling Catheter # Bowel Movements 0 1 - Exam GENERAL DESCRIPTION: An elderly male up in the chair in no distress RESPIRATORY SYSTEM: Unlabored breathing , decreased breath sounds at bases HEART: S1 S2 regular rate and rhythm , ABDOMEN: Soft , no tenderness EXTREMITIES: No edema feet - Labs CBC & Chem 7: 04/26/23 23:52 04/26/23 05:03 Labs: Abnormal Lab Results - Last 24 Hours (Table) 04/26/23 04/26/23 Range/Units 05:03 05:03 RBC 3.88 L (4.40-5.60) X 10*6/uL Hgb 11.6 L (13.0-17.0) g/dL Hct 35.5 L (39.6-50.0) % Calcium 8.6 L (8.7-10.3) mg/dL Total Protein 5.4 L (6.2-8.2) g/dL Albumin 3.1 L (3.8-4.9) g/dL Albumin/Globulin Ratio 1.35 L (1.60-3.17) Ratio Microbiology - Last 24 Hours (Table) 04/23/23 10:29 Blood Culture - Preliminary Blood 04/22/23 22:10 Blood Culture Gram Stain - Final Blood Blood Culture - Final Klebsiella pneumoniae Assessment and Plan (1) Bacteremia Current Visit: Yes Status: Acute Code(s): R78.81 - BACTEREMIA SNOMED Code(s): 2820151 (2) Leukocytosis Current Visit: Yes Status: Acute Code(s): D72.829 - ELEVATED WHITE BLOOD CELL COUNT, UNSPECIFIED SNOMED Code(s): 917081814 (3) UTI (urinary tract infection) Current Visit: Yes Status: Acute Code(s): N39.0 - URINARY TRACT INFECTION, SITE NOT SPECIFIED SNOMED Code(s): 23230858 Plan: 1patient presented to hospital with complicated UTI in this patient who do have a history of prostate cancer now with significant enlargement of the prostate and irregularity of the bladder indicating of bladder outlet obstruction patient urine and blood culture positive for Klebsiella indicating complicated UTI 2-patient to continue with Rocephin 2 g daily while inpatient, currently waiting for colonoscopy with abnormality seen on the CT Family at the bedside questions answered Dictation was produced using [employer] dictation software. please excuse any grammatical, word or spelling errors. Time with Patient: Less than 30
[2023-04-27] MEDS ORDERED: PHENYLEPHRINE 10 MG/ML VIAL ONE (12:42)
[2023-04-27] MEDS ORDERED: PROPOFOL 10 MG/ML 20 ML VIAL IV ONE (12:42)
[2023-04-27 12:44] LABS: HCT 33.1 % (39.6-50.0); HGB 10.7 g/dL (13.0-17.0); MCH 30.5 pg (27.0-32.0); MCHC 32.3 g/dL (32.0-37.0); MCV 94.3 FL (80.0-97.0); Mean Platelet Volume 10.9 FL (9.5-12.2); NRBC Per 100 WBC 0 X 10*3/uL (0.00-0.01); Platelet Count 185 X 10*3/uL (140-440); RBC 3.51 X 10*6/uL (4.40-5.60); RDW 14.6 % (11.5-14.5); WBC 5.87 X 10*3/uL (4.50-10.00)
[2023-04-27] MEDS: IV FLUID CONTINUATION 1,000 ML IV ONE (12:46)
--- NOTE | 2023-04-27 13:02 | P.OP ---
Date of Procedure: 04/27/23 Preoperative Diagnosis: Possible hepatic flexure mass Postoperative Diagnosis: diverticulosis Poor colon prep Procedure(s) Performed: Colonoscopy y Anesthesia: ELKE Surgeon: Kumar Melgar Pathology: none sent Condition: stable Disposition: PACU Description of Procedure: Patient was placed on the endoscopy table in the lateral position. He received IV sedation. Digital rectal exam was performed. This revealed no abnormalities. The flexible colonoscope was then placed patient anus and passed throughout the colon. The colonoscope could not be advanced beyond the proximal transverse colon secondary to a large amount of solid stool in the colon. At this point the scope was withdrawn. The visualized transverse colon appeared normal. In the descending and sigmoid colon there was moderate diverticular changes. The scope was then brought back to the rectum this appeared normal. Scope was withdrawn the patient. The patient will need to be reprepped for colonoscopy to evaluate the hepatic flexure.
[2023-04-27 13:10] LABS: ALT 18 U/L (10-49); AST 22 U/L (14-35); Albumin 2.9 g/dL (3.8-4.9); Albumin/Globulin Ratio 1.38 Ratio (1.60-3.17); Alkaline Phosphatase 56 U/L (41-126); BUN/Creat Ratio 15.78 Ratio (12.00-20.00); Blood Urea Nitrogen 14.2 mg/dL (9.0-27.0); Calcium 8.1 mg/dL (8.7-10.3); Carbon Dioxide 26.8 mmol/L (21.6-31.8); Chloride 106 mmol/L (96-109); Globulin 2.1 g/dL (1.6-3.3); Glucose 84 mg/dL (70-110); Magnesium 1.8 mg/dL (1.5-2.4); Sodium 140 mmol/L (135-145); Total Bilirubin 0.3 mg/dL (0.3-1.2)
[2023-04-27] MEDS ORDERED: PROCHLORPERAZINE INJ 10 MG/2 ML VIAL IVP PRN (13:33)
[2023-04-27] MEDS: LIDOCAINE 4% PATCH TOPICAL SCH (14:49)
--- NOTE | 2023-04-27 15:33 | P.PN ---
Subjective Progress Note Date: 04/27/23 CHIEF COMPLAINT: Soft tissue thickening in the hepatic flexure HISTORY OF PRESENT ILLNESS: Patient scheduled for colonoscopy today. However, he had poor bowel prep. Colonoscopy will be rescheduled. Hgb 10.7 PHYSICAL EXAM: VITAL SIGNS: Reviewed. GENERAL: Well-developed in no acute distress. ABDOMEN: Soft. Nondistended. Nontender. NEUROLOGIC: Alert and oriented. Cranial nerves II through XII grossly intact. ASSESSMENT: 1. Soft tissue thickening of the hepatic flexure of the colon noted on CT scan 2. UTI with bacteremia 3. Prostate cancer history 4. Urinary retention PLAN: -Patient rescheduled for repeat colonoscopy tomorrow with Dr. Melgar due to poor bowel prep -Continue clear liquid diet today -Continue GoLytely bowel prep -N.p.o. after midnight Physician Neon Glass Bender note has been reviewed by physician. Signing provider agrees with the documented findings, assessment, and plan of care. Objective - Vital Signs Vital signs: Vital Signs Temp 97.5 F L 04/27/23 14:00 Pulse 59 L 04/27/23 14:00 Resp 18 04/27/23 14:00 BP 123/77 04/27/23 14:00 Pulse Ox 93 L 04/27/23 14:00 FiO2 Intake & Output 04/26/23 04/27/23 04/27/23 18:59 06:59 18:59 Intake Total 100 Output Total 3000 600 Balance -3000 -600 100 Intake: IV 100 Output: Urine 3000 600 Other: Voiding Method Indwelling Catheter Indwelling Catheter # Bowel Movements 1 1 - Labs CBC & Chem 7: 04/27/23 07:38 04/27/23 07:38 Labs: Abnormal Lab Results - Last 24 Hours (Table) 04/26/23 04/27/23 04/27/23 Range/Units 23:52 07:38 07:38 RBC 3.74 L 3.51 L (4.30-5.90) m/uL Hgb 11.4 L 10.7 L (13.0-17.5) gm/dL Hct 34.9 L 33.1 L (39.0-53.0) % RDW 14.6 H (11.5-14.5) % Calcium 8.1 L (8.7-10.3) mg/dL Total Protein 5.0 L (6.2-8.2) g/dL Albumin 2.9 L (3.8-4.9) g/dL Albumin/Globulin Ratio 1.38 L (1.60-3.17) Ratio Microbiology - Last 24 Hours (Table) 04/23/23 10:29 Blood Culture - Preliminary Blood
--- NOTE | 2023-04-27 17:01 | P.PN ---
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 He presented to the emergency department on 04/22/2023 with complaints of generalized weakness and confusion. He underwent full evaluation in the emergency department. Vital signs upon arrival show blood pressure 81/52, heart rate 125, respiratory rate 18, temp 98.0 F, and SpO2 of 98% on room air. CT abdomen pelvis and revealed severe prostatomegaly 8 cm increased from 7.5 in 2017 along with findings consistent of cystitis with emphysematous cystitis not excluded along with soft tissue th ickening at the hepatic flexure, recommended direct visualization to exclude neoplasm. Chest CTA was negative for pulmonary emboli revealing mild to moderate bronchial wall thickening with aneurysmal ascending aorta measuring 4.[address] brain revealed no acute abnormalities. EKG revealed A-fib with RVR at 137 bpm with a right bundle branch block . Laboratory evaluation was remarkable for lactic acid 2.8, UA consistent with UTI, Troponin was elevated at 0.098, WBC count 19.3, magnesium 1.4, lactic acid 2.8. Patient started on IV ceftriaxone. He was admitted under our services with consultation to cardiology and urology. Troponins trended resulting at 0.098, 0.234, and 0.244. Echocardiogram was completed showing preserved EF of 55 to 60% with mild mitral regurgitation and trace tricuspid regurgitation. Physical exam: Patient seen and fully evaluated at bedside this morning. He was visiting at bedside with family. Awaiting to go down for colonoscopy this morning. He denies having any complaints at this time. Reports 1 episode of nausea and vomiting overnight. Vital signs reviewed and stable. General: Nontoxic, no distress and appears stated age. Derm: Skin warm and dry, normal coloration for ethnicity. Head: Atraumatic, normocephalic and symmetric. Eyes: EOMs intact, no lid lag, and anicteric sclera Mouth: no lip lesions, mucus membranes moist Cardiovascular: Irregularly irregular with normal S1S2, soft systolic murmur, positive posterior tibial pulses bilaterally, and cap refill < 2 seconds. Lungs: Respirations even, regular, and unlabored on room air. Lungs CTA bilaterally, no rhonchi, no rales, no wheezing, and no accessory muscle usage. Long catheter to dependent drainage. Abdominal: soft, nontender to palpation, no guarding, no appreciable organomegaly Ext: ROM intact. No gross muscle atrophy, no edema, no contractures Neuro: Speech clear, face symmetrical and CN II-XII grossly intact with no noted focal neuro deficits Psych: Alert and oriented to person, place, time, and situation. Appropriate and pleasant affect. 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 -Hyponatremia resolved, fluid hydration discontinued. -Continue IV ceftriaxone 2 g every 24 hours pending final blood culture results -Urology following, patient with persistent urinary retention possibly secondary to severe prostatomegaly, requiring reinsertion of Long catheter. -General surgery consulted for evaluation and taking patient for colonoscopy tomorrow. -Cardiology following, reviewed documentation in chart stating continue amiodarone 200 mg twice daily and Eliquis 5 mg twice daily -Echocardiogram was completed showing preserved EF of 55 to 60% with mild mitral regurgitation and trace tricuspid regurgitation. -Encephalopathy likely in the setting of sepsis secondary to bacteremia and UTI and has resolved Acute metabolic encephalopathy, resolved Hypomagnesemia, resolved. Lactic acidosis, resolved. Leukocytosis, resolved Prerenal azotemia, resolved Data and imaging reviewed: Morning labs completed and reviewed. CBC showing stable normocytic anemia with hemoglobin of 10.7. BMP unremarkable. Magnesium 1.8. Vital signs reviewed. Blood pressure 107/67, heart rate 63, respiratory rate 17, temp 98.1 F, and SpO2 of 91% on room air. CODE STATUS: DNR/DNI DVT prophylaxis: Eliquis held pending completion of colonoscopy. Anticipated discharge date: Clinical course to determine Anticipated discharge place: Clinical course to determine Patient was seen independently by Nurse Pracitioner. This document was prepared using [email or web address] dictation software. 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 Fuentes Conte NP rendered care for this patient independently, reviewed the findings and plan as documented in the note above. I did not physically speak with or examine the patient on this date. Objective - Vital Signs Vital signs: Vital Signs Temp 98.1 F 04/27/23 07:34 Pulse 63 04/27/23 07:34 Resp 17 04/27/23 07:34 BP 107/67 04/27/23 07:34 Pulse Ox 91 L 04/27/23 07:34 FiO2 Intake & Output 04/26/23 04/27/23 04/27/23 18:59 06:59 18:59 Output Total 3000 600 Balance -3000 -600 Output: Urine 3000 600 Other: Voiding Method Indwelling Catheter Indwelling Catheter # Bowel Movements 1 1 - Labs CBC & Chem 7: 04/27/23 07:38 04/27/23 07:38 Labs: Abnormal Lab Results - Last 24 Hours (Table) 04/26/23 04/26/23 04/26/23 Range/Units 05:03 05:03 23:52 RBC 3.88 L 3.74 L (4.40-5.60) X 10*6/uL Hgb 11.6 L 11.4 L (13.0-17.0) g/dL Hct 35.5 L 34.9 L (39.6-50.0) % Calcium 8.6 L (8.7-10.3) mg/dL Total Protein 5.4 L (6.2-8.2) g/dL Albumin 3.1 L (3.8-4.9) g/dL Albumin/Globulin Ratio 1.35 L (1.60-3.17) Ratio Microbiology - Last 24 Hours (Table) 04/23/23 10:29 Blood Culture - Preliminary Blood
[2023-04-27] MEDS ORDERED: HYDROcodone/APAP 7.5-325MG 1 EACH TAB PO PRN (19:30)
[2023-04-27] MEDS ORDERED: ONDANSETRON 4 MG/2 ML VIAL IVP PRN (19:30)
[2023-04-27] MEDS ORDERED: HYDROmorphone 1 MG/ML 1 ML SYRINGE IVP PRN (19:30)
--- NOTE | 2023-04-27 19:30 | P.OP ---
Date of Procedure: 04/27/23 Preoperative Diagnosis: Appendiceal abscess Postoperative Diagnosis: Appendiceal abscess Procedure(s) Performed: Diagnostic laparoscopy Exploratory laparotomy Open appendectomy Anesthesia: ELKE Surgeon: Kumar Melgar Estimated Blood Loss (ml): 10 Pathology: other (Appendix) Condition: stable Disposition: PACU Description of Procedure: T the patient's placed on the operating table in the supine position. The patient received general anesthesia. The abdomen was prepped and draped in the usual sterile fashion. The skin was anesthetized 1% local Xylocaine at the trocar sites. Using an 11 blade the skin was incised at the umbilicus. The umbilicus was grasped with a [place] clamp and then a Veress needle was placed into the peritoneal cavity. Position of the Veress needle was confirmed with positive drop test. After adequate insufflation a 5 mm trocar was placed into the peritoneal cavity. The abdomen was further insufflated. And then the laparoscope was placed in the peritoneal cavity. Next a 5 mm trocar was placed in the midline suprapubic position. And then a 10 mm trocar was placed in the midline epigastric position. The patient was rotated with the right side up and in Trendelenburg. The appendix was visualized. The appendix appeared to be inflamed. There was dense inflammatory changes in the right lower quadrant. The appendix could not be mobilized well. At this point the procedure was converted to an open procedure. The trocars were withdrawn. The skin was incised midline. Then use electrocautery the abdominal cavity is entered. The abdominal retractors placed the wound. And then the appendix and cecum were visualized. Using finger dissection the appendix and cecum were dissected free from the lateral wall. There was significant inflammatory changes along the right pelvis. The appendiceal base was seen. Using the harmonic scissors the mesoappendix was divided. And then the appendiceal base was ligated with a Endoloop. The harmonic scissors used to perform the appendectomy. The specimen to pathology. The eye was irrigated. There is no significant bleeding seen. A JESÚS drain was placed in the right paracolic gutter brought through the right upper quadrant. And then the fascia was closed looped #1 PDS suture. Skin was closed jessica. Patient tolerated well. He was sent to recovery room in stable condition. The appendix was grasped and then using the Harmonic scissors the mesoappendix was divided. A PDS Endoloop was then placed around the base of the appendix. And then the appendix was divided using Harmonic scissors. The appendix was placed into an Endo Catch and brought out through the 10 mm trocar site. The abdomen was irrigated. There is no bleeding seen. The trochars withdrawn. The skin was closed interrupted 3-0 Monocryl suture. Dermabond dressing was applied. Patient was sent to recovery room in stable condition.
--- NOTE | 2023-04-27 22:01 | P.PN ---
Subjective Progress Note Date: 04/27/23 Principal diagnosis: Reason for follow-up is complicated UTI and bacteremia Patient is a 87-year-old male with a past medical history significant for large B-cell lymphoma history of prostate cancer apparently did have TURP prior to 2009 patient presented to the hospital for evaluation of weakness patient was noted to be septic secondary to complicated UTI with a blood and urine culture positive for Klebsiella. On today's evaluation that is 04/27/2023, the patient continues to be afebrile, the patient is on room air and breathing comfortably, The patient denies having any chest pain or cough, the patient denies having any abdominal pain apparently did have vomiting after his starting the prep for his bowel but no further vomiting has been reported. Patient did have a white count of 5.87 creatinine 0.9 blood culture repeat so far negative Objective - Vital Signs Vital signs: Vital Signs Temp 98.1 F 04/27/23 07:34 Pulse 63 04/27/23 07:34 Resp 17 04/27/23 07:34 BP 107/67 04/27/23 07:34 Pulse Ox 91 L 04/27/23 07:34 FiO2 Intake & Output 04/26/23 04/27/23 04/27/23 18:59 06:59 18:59 Output Total 3000 600 Balance -3000 -600 Output: Urine 3000 600 Other: Voiding Method Indwelling Catheter Indwelling Catheter # Bowel Movements 1 1 - Exam GENERAL DESCRIPTION: An elderly male up in the chair in no distress RESPIRATORY SYSTEM: Unlabored breathing , decreased breath sounds at bases HEART: S1 S2 regular rate and rhythm , ABDOMEN: Soft , no tenderness EXTREMITIES: No edema feet - Labs CBC & Chem 7: 04/27/23 07:38 04/27/23 07:38 Labs: Abnormal Lab Results - Last 24 Hours (Table) 04/26/23 Range/Units 23:52 RBC 3.74 L (4.30-5.90) m/uL Hgb 11.4 L (13.0-17.5) gm/dL Hct 34.9 L (39.0-53.0) % Microbiology - Last 24 Hours (Table) 04/23/23 10:29 Blood Culture - Preliminary Blood Assessment and Plan (1) Bacteremia Current Visit: Yes Status: Acute Code(s): R78.81 - BACTEREMIA SNOMED Code(s): 2565615 (2) Leukocytosis Current Visit: Yes Status: Acute Code(s): D72.829 - ELEVATED WHITE BLOOD CELL COUNT, UNSPECIFIED SNOMED Code(s): 098973597 (3) UTI (urinary tract infection) Current Visit: Yes Status: Acute Code(s): N39.0 - URINARY TRACT INFECTION, SITE NOT SPECIFIED SNOMED Code(s): 64761230 Plan: 1patient presented to hospital with complicated UTI in this patient who do have a history of prostate cancer now with significant enlargement of the prostate and irregularity of the bladder indicating of bladder outlet obstruction patient urine and blood culture positive for Klebsiella indicating complicated UTI 2-patient currently undergoing workup for the abnormality seen on the CT and is scheduled for colonoscopy this afternoon 3-patient kept on IV Rocephin while inpatient and will transition to oral Cipro on discharge Family at the bedside questions were answered Dictation was produced using [employer] dictation software. please excuse any grammatical, word or spelling errors. Time with Patient: Less than 30
[2023-04-27] MEDS: ONDANSETRON 4 MG/2 ML VIAL IVP SCH (23:18)
[2023-04-28 08:43] LABS: HCT 36.7 % (39.6-50.0); HGB 11.6 g/dL (13.0-17.0); MCH 29.3 pg (27.0-32.0); MCHC 31.6 g/dL (32.0-37.0); MCV 92.7 FL (80.0-97.0); Mean Platelet Volume 10.8 FL (9.5-12.2); NRBC Per 100 WBC 0 X 10*3/uL (0.00-0.01); Platelet Count 211 X 10*3/uL (140-440); RBC 3.96 X 10*6/uL (4.40-5.60); RDW 14.2 % (11.5-14.5)
[2023-04-28 08:57] LABS: ALT 18 U/L (10-49); AST 25 U/L (14-35); Albumin 3.3 g/dL (3.8-4.9); Albumin/Globulin Ratio 1.32 Ratio (1.60-3.17); Alkaline Phosphatase 65 U/L (41-126); Blood Urea Nitrogen 12.6 mg/dL (9.0-27.0); Calcium 8.8 mg/dL (8.7-10.3); Carbon Dioxide 23.3 mmol/L (21.6-31.8); Chloride 104 mmol/L (96-109); Globulin 2.5 g/dL (1.6-3.3); Glucose 86 mg/dL (70-110); Potassium 3.7 mmol/L (3.5-5.5); Sodium 139 mmol/L (135-145); Total Bilirubin 0.4 mg/dL (0.3-1.2); Total Protein 5.8 g/dL (6.2-8.2)
[2023-04-28] MEDS: KETOROLAC 15 MG/ML 1 ML VIAL IVP STA (09:17)
--- NOTE | 2023-04-28 09:52 | XR ---
EXAMINATION TYPE: XR Hip RT and AP Pelvis DATE OF EXAM: 04/28/2023 COMPARISON: NONE HISTORY: Pain TECHNIQUE: A single AP view of the pelvis is obtained. Two views of the right hip are obtained. FINDINGS: There is mild arthropathy of the right hip. No acute fracture. No dislocation. SI joint pa tent. There is degenerative change lower lumbar spine. Vascular calcifications pelvis. IMPRESSION: 1. Arthropathy. No definite acute fracture. If clinical suspicion is high or there is difficulty with weightbearing then CT scan would be recommended.
--- NOTE | 2023-04-28 10:11 | XR ---
EXAM TYPE: LUMBAR SPINE X RAY SERIES COMPARISON: NONE HISTORY: Pain TECHNIQUE: 4 views are submitted. FINDINGS: Alignment is anatomic. The pedicles are intact. The transverse processes are intact. There is no s pondylolysis or spondylolisthesis. Diffuse osteopenia with multilevel hypertrophic and degenerative changes spine. Multilevel facet arthropathy and foraminal. Calcification in the aorta with findings s uspicious for aneurysm. IMPRESSION: 1. Diffuse osteopenia with multilevel moderate to severe degenerative disc disease, facet arthropathy and multilevel foraminal protrusion. 2. 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
[2023-04-28] MEDS: ENOXAPARIN 40 MG/0.4 ML SYRINGE SQ SCH (10:14)
[2023-04-28] MEDS: LACTULOSE 20 GM/30 ML CUP PO SCH (10:46)
[2023-04-28] MEDS: PEG 3350 (236 GM/BTL) + LYTES 4,000 ML BOTTLE PO ONE (10:47)
[2023-04-28] MEDS: ONDANSETRON 4 MG/2 ML VIAL IVP SCH (11:42)
--- NOTE | 2023-04-28 12:22 | P.PN ---
Subjective Progress Note Date: 04/28/23 Principal diagnosis: Reason for follow-up is complicated UTI and bacteremia Patient is a 87-year-old male with a past medical history significant for large B-cell lymphoma history of prostate cancer apparently did have TURP prior to 2009 patient presented to the hospital for evaluation of weakness patient was noted to be septic secondary to complicated UTI with a blood and urine culture positive for Klebsiella. On today's evaluation that is 04/28/2023, Patient is afebrile patient is currently on room air and denies having any shortness of breath, the patient denies any chest pain or cough, the patient denies any nausea vomiting did not have any abdominal pain and no diarrhea. Patient white count 6.60, creatinine 0.9 blood culture repeat so far negative Objective - Vital Signs Vital signs: Vital Signs Temp 97.5 F L 04/28/23 07:46 Pulse 63 04/28/23 07:46 Resp 17 04/28/23 07:46 BP 133/76 04/28/23 07:46 Pulse Ox 97 04/28/23 07:46 FiO2 Intake & Output 04/27/23 04/28/23 04/28/23 18:59 06:59 18:59 Intake Total 100 Output Total 1200 495 Balance -1100 -495 Intake: IV 100 Output: Urine 1200 495 Other: Voiding Method Indwelling Catheter - Exam GENERAL DESCRIPTION: An elderly male up in the chair in no distress RESPIRATORY SYSTEM: Unlabored breathing , decreased breath sounds at bases HEART: S1 S2 regular rate and rhythm , ABDOMEN: Soft , no tenderness EXTREMITIES: No edema feet - Labs CBC & Chem 7: 04/28/23 03:54 04/28/23 03:54 Labs: Abnormal Lab Results - Last 24 Hours (Table) 04/27/23 04/27/23 04/28/23 Range/Units 07:38 07:38 03:54 RBC 3.51 L 3.96 L (4.40-5.60) X 10*6/uL Hgb 10.7 L 11.6 L (13.0-17.0) g/dL Hct 33.1 L 36.7 L (39.6-50.0) % MCHC 31.6 L (32.0-37.0) g/dL RDW 14.6 H (11.5-14.5) % Calcium 8.1 L (8.7-10.3) mg/dL Total Protein 5.0 L (6.2-8.2) g/dL Albumin 2.9 L (3.8-4.9) g/dL Albumin/Globulin Ratio 1.38 L (1.60-3.17) Ratio 04/28/23 Range/Units 03:54 RBC (4.40-5.60) X 10*6/uL Hgb (13.0-17.0) g/dL Hct (39.6-50.0) % MCHC (32.0-37.0) g/dL RDW (11.5-14.5) % Calcium (8.7-10.3) mg/dL Total Protein 5.8 L (6.2-8.2) g/dL Albumin 3.3 L (3.8-4.9) g/dL Albumin/Globulin Ratio 1.32 L (1.60-3.17) Ratio Assessment and Plan (1) Bacteremia Current Visit: Yes Status: Acute Code(s): R78.81 - BACTEREMIA SNOMED Code(s): 2705954 (2) Leukocytosis Current Visit: Yes Status: Acute Code(s): D72.829 - ELEVATED WHITE BLOOD CELL COUNT, UNSPECIFIED SNOMED Code(s): 601233761 (3) UTI (urinary tract infection) Current Visit: Yes Status: Acute Code(s): N39.0 - URINARY TRACT INFECTION, SITE NOT SPECIFIED SNOMED Code(s): 85190940 Plan: 1patient presented to hospital with complicated UTI in this patient who do have a history of prostate cancer now with significant enlargement of the prostate and irregularity of the bladder indicating of bladder outlet obstruction patient urine and blood culture positive for Klebsiella indicating complicated UTI 2-patient currently undergoing workup for the abnormality seen on the CT, colonoscopy yesterday could not evaluate the area because of poor prep surgery recommending repeat prep and colonoscopy 3-patient to continue with Rocephin while inpatient and will transition to oral Cipro on discharge Dictation was produced using [employer] software. please excuse any grammatical, word or spelling errors. Time with Patient: Less than 30
--- NOTE | 2023-04-28 14:23 | P.PN ---
Subjective Progress Note Date: 04/28/23 CHIEF COMPLAINT: Soft tissue thickening in the hepatic flexure HISTORY OF PRESENT ILLNESS: Patient status post colonoscopy yesterday with poor bowel prep. It did show evidence of diverticulosis. Initially recommended repeat colonoscopy for today. However patient and family have declined repeat colonoscopy at this time afebrile. WBC 6.60 Hgb 11.6 platelets 211 creatinine 0.9 PHYSICAL EXAM: VITAL SIGNS: Reviewed. GENERAL: Well-developed in no acute distress. ABDOMEN: Soft. Nondistended. Nontender. NEUROLOGIC: Alert and oriented. Cranial nerves II through XII grossly intact. ASSESSMENT: 1. Soft tissue thickening of the hepatic flexure of the colon noted on CT scan 2. UTI with bacteremia 3. Prostate cancer history 4. Urinary retention PLAN: -Dr. Melgar recommends outpatient colonoscopy -Surgical service will sign off. Please call with any questions or concerns. Physician Celery Stripper note has been reviewed by physician. Signing provider agrees with the documented findings, assessment, and plan of care. Objective - Vital Signs Vital signs: Vital Signs Temp 97.5 F L 04/28/23 07:46 Pulse 63 04/28/23 07:46 Resp 12 04/28/23 08:00 BP 133/76 04/28/23 07:46 Pulse Ox 97 04/28/23 07:46 FiO2 Intake & Output 04/27/23 04/28/23 04/28/23 18:59 06:59 18:59 Intake Total 100 Output Total 1200 645 Balance -1100 -645 Intake: IV 100 Output: Urine 1200 645 Uretheral (Long) 150 Other: Voiding Method Indwelling Catheter Indwelling Catheter - Labs CBC & Chem 7: 04/28/23 03:54 04/28/23 03:54 Labs: Abnormal Lab Results - Last 24 Hours (Table) 04/28/23 04/28/23 Range/Units 03:54 03:54 RBC 3.96 L (4.40-5.60) X 10*6/uL Hgb 11.6 L (13.0-17.0) g/dL Hct 36.7 L (39.6-50.0) % MCHC 31.6 L (32.0-37.0) g/dL Total Protein 5.8 L (6.2-8.2) g/dL Albumin 3.3 L (3.8-4.9) g/dL Albumin/Globulin Ratio 1.32 L (1.60-3.17) Ratio
--- NOTE | 2023-04-28 16:33 | P.PN ---
Subjective Progress Note Date: 04/28/23 Hospital course: Patient is a very pleasant 87-year-old male with a PMH of prostate cancer, BPH, and large B-cell lymphoma treated with chemotherapy in 2009. He presented to the emergency department on 04/22/2023 with complaints of generalized weakness and confusion. He underwent full evaluation in the emergency department. Vital signs upon arrival show blood pressure 81/52, heart rate 125, respiratory rate 18, temp 98.0 F, and SpO2 of 98% on room air. CT abdomen pelvis and revealed severe prostatomegaly 8 cm increased from 7.5 in 2017 along with findings consistent of cystitis with emphysematous cystitis not excluded along with soft tissue thickening at the hepatic flexure, recommended direct visualization to exclude neoplasm. Chest CTA was negative for pulmonary emboli revealing mild to moderate bronchial wall thickening with aneurysmal ascending aorta measuring 4.[address] brain revealed no acute abnormalities. EKG revealed A-fib with RVR at 137 bpm with a right bundle branch block . Laboratory evaluation was remarkable for lactic acid 2.8, UA consistent with UTI, Troponin was elevated at 0.098, WBC count 19.3, magnesium 1.4, lactic acid 2.8. Patient started on IV ceftriaxone. He was admitted under our services with consultation to cardiology and urology. Troponins trended resulting at 0.098, 0.234, and 0.244. Echocardiogram was completed showing preserved EF of 55 to 60% with mild mitral regurgitation and trace tricuspid regurgitation. He was evaluated by cardiology. Cardiology recommending continuation of amiodarone and Eliquis and outpatient follow-up in their office. Urine culture positive for Klebsiella pneumoniae and blood culture positive for Klebsiella pneumoniae. Infectious disease following, recommending continuing IV antibiotics with Rocephin throughout hospitalization and discharged home on extended antibiotic course of 4 to 6 weeks secondary to severe prostamegaly and unable to rule out prostatitis. On 04/27/23 patient was taken for colonoscopy to evaluate thickening at hepatic flexure and for direct visualization to exclude colonic mass/neoplasm. Unfortunately colon scope could not be advanced beyond the proximal transverse colon secondary to large amount of solid stool in the colon. Patient and patient's family were informed if patient would like to undergo repeat colonoscopy, he will need to be reprepped with additional GoLytely. Patient and family declining repeating course of colonoscopy prep at this time, they will discuss further if they choose to do on an outpatient basis. Patient started on lactulose 20 mg twice daily for constipation and moderate stool in colon. He was complaining of right lower back and hip pain. X-ray lumbar spine was completed and radiology report reviewed showing diffuse osteopenia with multilevel moderate to severe degenera tive disc disease, facet arthropathy and multilevel foraminal protrusion. X-ray right hip reviewed showing arthroplasty with no definitive acute fracture. Patient does not want to undergo any surgical interventions and therefore orthospine surgery team was not consulted. Order placed for LSO brace for comfort. Order also placed for pain management consult to discuss options with patient and family for possible epidural injection for pain management. Physical exam: Patient seen and fully evaluated at bedside this morning. He was visiting at bedside with family. Patient reports continued pain to right hip lower back region. No signs of bruising or injury. Patient has not had any falls during hospitalization. Patient's family does report patient did experience a couple falls at home the week prior to hospitalization. Patient to be given Toradol in addition to lidocaine patch and orders placed for x-ray right hip along with x- ray of lumbar sacral spine to rule out previous injury. Vital signs reviewed and stable. General: Nontoxic, no distress and appears stated age. Derm: Skin warm and dry, normal coloration for ethnicity. Head: Atraumatic, normocephalic and symmetric. Eyes: EOMs intact, no lid lag, and anicteric sclera Mouth: no lip lesions, mucus membranes moist Cardiovascular: Irregularly irregular with normal S1S2, soft systolic murmur, positive posterior tibial pulses bilaterally, and cap refill < 2 seconds. Lungs: Respirations even, regular, and unlabored on room air. Lungs CTA bilaterally, no rhonchi, no rales, no wheezing, and no accessory muscle usage. Long catheter to dependent drainage. Abdominal: soft, nontender to palpation, no guarding, no appreciable organomegaly Ext: ROM intact. No gross muscle atrophy, no edema, no contractures Neuro: Speech clear, face symmetrical and CN II-XII grossly intact with no noted focal neuro deficits Psych: Alert and oriented to person, place, time, and situation. Appropriate and pleasant affect. 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 -Hyponatremia resolved, fluid hydration discontinued. -Continue IV ceftriaxone 2 g every 24 hours pending final blood culture results -Urology following, patient with persistent urinary retention possibly secondary to severe prostatomegaly, requiring reinsertion of Long catheter with plans to discharge home with Long in place. -General surgery consulted for evaluation and taking patient for colonoscopy tomorrow. -Cardiology following, reviewed documentation in chart stating continue amiodarone 200 mg twice daily and Eliquis 5 mg twice daily -Echocardiogram was completed showing preserved EF of 55 to 60% with mild mitral regurgitation and trace tricuspid regurgitation. -Encephalopathy likely in the setting of sepsis secondary to bacteremia and UTI and has resolved Right lower hip and back pain Moderate to severe degenerative disc disease Concerns of multilevel foraminal protrusion per lumbar/sacral x-ray report Order placed for lidocaine patch 4% topical patch every 24 hours and Toradol 15 mg IVP every 6 hours as needed for pain. X-ray lumbar spine was completed and radiology report reviewed showing diffuse osteopenia with multilevel moderate to severe degenerative disc disease, facet arthropathy and multilevel foraminal protrusion. X-ray right hip reviewed showing arthroplasty with no definitive acute fracture. Patient is not a surgical candidate, orders placed for LSO brace for comfort. Discussed results with patient's daughter, Charlene, and they are in agreement with consult to pain management for Acute metabolic encephalopathPatient placed on lidocaine patchy, resolved Hypomagnesemia, resolved. Lactic acidosis, resolved. Leukocytosis, resolved Prerenal azotemia, resolved Incidental finding on CT, moderate bronchial wall thickening. May consider evaluation outpatient via EGD for direct visualization to rule out neoplastic process. Data and imaging reviewed: Morning labs completed and reviewed. CBC showing stable normocytic anemia with hemoglobin of 11.6. BMP remains unremarkable. Magnesium 2.0. Vital signs reviewed. Blood pressure 133/76, heart rate 63, respiratory rate 17, temp 97.5 F, and SpO2 of 97% on room air. X-ray lumbar spine was completed and radiology report reviewed showing diffuse osteopenia with multilevel moderate to severe degenerative disc disease, facet arthropathy and multilevel foraminal protrusion. X-ray right hip reviewed showing arthroplasty with no definitive acute fracture. CODE STATUS: DNR/DNI DVT prophylaxis: Eliquis held pending evaluation by pain management for possible epidural injection Anticipated discharge date: Clinical course to determine Anticipated discharge place: Clinical course to determine Patient was seen independently by Nurse Pracitioner. This document was prepared using [employer] dictation software. Please allow for errors in linux systems analyst, while rare they do occur. Patient was seen independently by Inés ROSENBERG. I agree with the assessment and plan done by my colleague. Objective - Vital Signs Vital signs: Vital Signs Temp 98.1 F 04/28/23 02:00 Pulse 63 04/28/23 02:00 Resp 20 04/28/23 02:00 BP 149/74 04/28/23 02:00 Pulse Ox 94 L 04/28/23 02:00 FiO2 Intake & Output 04/27/23 04/28/23 04/28/23 18:59 06:59 18:59 Intake Total 100 Output Total 1200 Balance -1100 Intake: IV 100 Output: Urine 1200 Other: Voiding Method Indwelling Catheter - Labs CBC & Chem 7: 04/30/23 12:36 04/30/23 12:36 Labs: Abnormal Lab Results - Last 24 Hours (Table) 04/27/23 04/27/23 Range/Units 07:38 07:38 RBC 3.51 L (4.40-5.60) X 10*6/uL Hgb 10.7 L (13.0-17.0) g/dL Hct 33.1 L (39.6-50.0) % RDW 14.6 H (11.5-14.5) % Calcium 8.1 L (8.7-10.3) mg/dL Total Protein 5.0 L (6.2-8.2) g/dL Albumin 2.9 L (3.8-4.9) g/dL Albumin/Globulin Ratio 1.38 L (1.60-3.17) Ratio
[2023-04-28] MEDS: KETOROLAC 15 MG/ML 1 ML VIAL IVP PRN (17:03)
[2023-04-29 08:25] VITALS: BMI 23.7
--- NOTE | 2023-04-29 14:49 | P.PN ---
Subjective Progress Note Date: 04/29/23 Principal diagnosis: Reason for follow-up is complicated UTI and bacteremia Patient is a 87-year-old male with a past medical history significant for large B-cell lymphoma history of prostate cancer apparently did have TURP prior to 2009 patient presented to the hospital for evaluation of weakness patient was noted to be septic secondary to complicated UTI with a blood and urine culture positive for Klebsiella. On today's evaluation that is 04/29/2023,the patient denies any fever or any chills, patient is breathing comfortably on room air, the patient denies chest pain shortness of breath and no significant cough, patient denies abdominal pain, no nausea vomiting or diarrhea. Patient white count is 6.60, creatinine 0 point 9 repeat blood culture negative Objective - Vital Signs Vital signs: Vital Signs Temp 97.7 F 04/29/23 07:04 Pulse 63 04/29/23 08:25 Resp 17 04/29/23 08:25 BP 143/68 04/29/23 07:04 Pulse Ox 95 04/29/23 07:04 FiO2 Intake & Output 04/28/23 04/29/23 04/29/23 18:59 06:59 18:59 Intake Total 420 Output Total 1070 3150 Balance -1070 -2730 Weight 79.379 kg Intake: Oral 420 Output: Urine 1070 3150 Uretheral (Long) 150 Other: Voiding Method Indwelling Catheter Indwelling Catheter Indwelling Catheter - Exam GENERAL DESCRIPTION: An elderly male up in the chair in no distress RESPIRATORY SYSTEM: Unlabored breathing , decreased breath sounds at bases HEART: S1 S2 regular rate and rhythm , ABDOMEN: Soft , no tenderness EXTREMITIES: No edema feet - Labs CBC & Chem 7: 04/28/23 03:54 04/28/23 03:54 Labs: Microbiology - Last 24 Hours (Table) 04/23/23 10:29 Blood Culture - Final Blood Assessment and Plan (1) Bacteremia Current Visit: Yes Status: Acute Code(s): R78.81 - BACTEREMIA SNOMED Code(s): 8653465 (2) Leukocytosis Current Visit: Yes Status: Acute Code(s): D72.829 - ELEVATED WHITE BLOOD CELL COUNT, UNSPECIFIED SNOMED Code(s): 696142573 (3) UTI (urinary tract infection) Current Visit: Yes Status: Acute Code(s): N39.0 - URINARY TRACT INFECTION, SITE NOT SPECIFIED SNOMED Code(s): 10010633 Plan: 1patient presented to hospital with complicated UTI in this patient who do have a history of prostate cancer now with significant enlargement of the prostate and irregularity of the bladder indicating of bladder outlet obstruction patient urine and blood culture positive for Klebsiella indicating complicated UTI 2-patient has shown clinical improvement repeat blood culture negative, 2 continue with Rocephin while inpatient and will transition to oral Cipro x 4 weeks on discharge Daughter at the bedside questions were answered Dictation was produced using Indexing dictation software. please excuse any grammatical, word or spelling errors. Time with Patient: Less than 30
--- NOTE | 2023-04-29 18:34 | P.PN ---
Subjective Progress Note Date: 04/29/23 Hospital course: Patient is a very pleasant 87-year-old male with a PMH of prostate cancer, BPH, and large B-cell lymphoma treated with chemotherapy in 2009. He presented to the emergency department on 04/22/2023 with complaints of generalized weakness and confusion. He underwent full evaluation in the emergency department. Vital signs upon arrival show blood pressure 81/52, heart rate 125, respiratory rate 18, temp 98.0 F, and SpO2 of 98% on room air. CT abdomen pelvis and revealed severe prostatomegaly 8 cm increased from 7.5 in 2017 along with findings consistent of cystitis with emphysematous cystitis not excluded along with soft tissue thickening at the hepatic flexure, recommended direct visualization to exclude neoplasm. Chest CTA was negative for pulmonary emboli revealing mild to moderate bronchial wall thickening with aneurysmal ascending aorta measuring 4.[address] brain revealed no acute abnormalities. EKG revealed A-fib with RVR at 137 bpm with a right bundle branch block . Laboratory evaluation was remarkable for lactic acid 2.8, UA consistent with UTI, Troponin was elevated at 0.098, WBC count 19.3, magnesium 1.4, lactic acid 2.8. Patient started on IV ceftriaxone. He was admitted under our services with consultation to cardiology and urology. Troponins trended resulting at 0.098, 0.234, and 0.244. Echocardiogram was completed showing preserved EF of 55 to 60% with mild mitral regurgitation and trace tricuspid regurgitation. He was evaluated by cardiology. Cardiology recommending continuation of amiodarone and Eliquis and outpatient follow-up in their office. Urine culture positive for Klebsiella pneumoniae and blood culture positive for Klebsiella pneumoniae. Infectious disease following, recommending continuing IV antibiotics with Rocephin throughout hospitalization and discharged home on extended antibiotic course of 4 to 6 weeks secondary to severe prostamegaly and unable to rule out prostatitis. On 04/27/23 patient was taken for colonoscopy to evaluate thickening at hepatic flexure and for direct visualization to exclude colonic mass/neoplasm. Unfortunately colon scope could not be advanced beyond the proximal transverse colon secondary to large amount of solid stool in the colon. Patient and patient's family were informed if patient would like to undergo repeat colonoscopy, he will need to be reprepped with additional GoLytely. Patient and family declining repeating course of colonoscopy prep at this time, they will discuss further if they choose to do on an outpatient basis. Patient started on lactulose 20 mg twice daily for constipation and moderate stool in colon. He was complaining of right lower back and hip pain. X-ray lumbar spine was completed and radiology report reviewed showing diffuse osteopenia with multilevel moderate to severe degenera tive disc disease, facet arthropathy and multilevel foraminal protrusion. X-ray right hip reviewed showing arthroplasty with no definitive acute fracture. Patient does not want to undergo any surgical interventions and therefore orthospine surgery team was not consulted. Order placed for LSO brace for comfort. Order also placed for pain management consult to discuss options with patient and family for possible epidural injection for pain management. Physical exam: Patient seen and fully evaluated at bedside this morning. Patient was still in bed this morning and reports having a bowel movement around 2:30 AM. He denies any complaints except for lower back pain. Consult was placed yesterday to pain management for possible epidural injection along with LSO brace. Vital signs reviewed and stable. General: Nontoxic, no distress and appears stated age. Derm: Skin warm and dry, normal coloration for ethnicity. Head: Atraumatic, normocephalic and symmetric. Eyes: EOMs intact, no lid lag, and anicteric sclera Mouth: no lip lesions, mucus membranes moist Cardiovascular: Irregularly irregular with normal S1S2, soft systolic murmur, positive posterior tibial pulses bilaterally, and cap refill < 2 seconds. Lungs: Respirations even, regular, and unlabored on room air. Lungs CTA bilaterally, no rhonchi, no rales, no wheezing, and no accessory muscle usage. Long catheter to dependent drainage. Abdominal: soft, nontender to palpation, no guarding, no appreciable organomegaly Ext: ROM intact. No gross muscle atrophy, no edema, no contractures Neuro: Speech clear, face symmetrical and CN II-XII grossly intact with no noted focal neuro deficits Psych: Alert and oriented to person, place, time, and situation. Appropriate and pleasant affect. 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 -Hyponatremia resolved, fluid hydration discontinued. -Continue IV ceftriaxone 2 g every 24 hours pending final blood culture results -Urology following, patient with persistent urinary retention possibly secondary to severe prostatomegaly, requiring reinsertion of Long catheter with plans to discharge home with Long in place. -General surgery consulted for evaluation and taking patient for colonoscopy tomorrow. -Cardiology following, reviewed documentation in chart stating continue amiodarone 200 mg twice daily and Eliquis 5 mg twice daily -Echocardiogram was completed showing preserved EF of 55 to 60% with mild mitral regurgitation and trace tricuspid regurgitation. -Encephalopathy likely in the setting of sepsis secondary to bacteremia and UTI and has resolved Right lower hip and back pain Moderate to severe degenerative disc disease Concerns of multilevel foraminal protrusion per lumbar/sacral x-ray report Continue lidocaine patch 4% topical patch every 24 hours and Toradol 15 mg IVP every 6 hours as needed for pain. X-ray lumbar spine was completed and radiology report reviewed showing diffuse osteopenia with multilevel moderate to severe degenerative disc disease, facet arthropathy and multilevel foraminal protrusion. X-ray right hip reviewed showing arthroplasty with no definitive acute fracture. Patient is not a surgical candidate, orders placed for LSO brace for comfort. Consult placed to pain management for evaluation for possible epidural injection. Acute metabolic encephalopathPatient placed on lidocaine patchy, resolved Hypomagnesemia, resolved. Lactic acidosis, resolved. Leukocytosis, resolved Prerenal azotemia, resolved Incidental finding on CT, moderate bronchial wall thickening. May consider evaluation outpatient via EGD for direct visualization to rule out neoplastic process. Data and imaging reviewed: Morning labs completed and reviewed. CBC showing stable normocytic anemia with hemoglobin of 11.6. BMP unremarkable. Magnesium normal findings at 2.0. Liver profile normal findings. Vital signs reviewed. Blood pressure 143/68, heart rate 63, respiratory rate 17, temp 97.7 F, SpO2 of 95% on room air. CODE STATUS: DNR/DNI DVT prophylaxis: Eliquis held pending evaluation by pain management for possible epidural injection Anticipated discharge date: Likely within the next 24 to 48 hours, pending recommendations from pain management Anticipated discharge place: Home with family Patient was seen independently by Nurse Pracitioner. This document was prepared using Droid system master dictation software. Please allow for errors in food preparation worker, while rare they do occur. I reviewed the documentation as provided by the SHILPA above, who is the original author of this note. I agree with the documented assessment and plan, with the following changes: none Objective - Vital Signs Vital signs: Vital Signs Temp 97.7 F 04/29/23 07:04 Pulse 63 04/29/23 07:04 Resp 17 04/29/23 07:04 BP 143/68 04/29/23 07:04 Pulse Ox 95 04/29/23 07:04 FiO2 Intake & Output 04/28/23 04/29/23 04/29/23 18:59 06:59 18:59 Intake Total 420 Output Total 1070 3150 Balance -1070 -2730 Weight 79.379 kg Intake: Oral 420 Output: Urine 1070 3150 Uretheral (Long) 150 Other: Voiding Method Indwelling Catheter Indwelling Catheter - Labs CBC & Chem 7: 04/30/23 12:36 04/30/23 12:36 Labs: Abnormal Lab Results - Last 24 Hours (Table) 04/28/23 04/28/23 Range/Units 03:54 03:54 RBC 3.96 L (4.40-5.60) X 10*6/uL Hgb 11.6 L (13.0-17.0) g/dL Hct 36.7 L (39.6-50.0) % MCHC 31.6 L (32.0-37.0) g/dL Total Protein 5.8 L (6.2-8.2) g/dL Albumin 3.3 L (3.8-4.9) g/dL Albumin/Globulin Ratio 1.32 L (1.60-3.17) Ratio Microbiology - Last 24 Hours (Table) 04/23/23 10:29 Blood Culture - Final Blood
[2023-04-30 08:17] VITALS: BP 131/70; PULSE 70; TEMP 98
[2023-04-30 09:24] VITALS: RESP 18
--- NOTE | 2023-04-30 10:09 | P.PN ---
Subjective Progress Note Date: 04/30/23 Hospital course: Patient is a very pleasant 87-year-old male with a PMH of prostate cancer, BPH, and large B-cell lymphoma treated with chemotherapy in 2009. He presented to the emergency department on 04/22/2023 with complaints of generalized weakness and confusion. He underwent full evaluation in the emergency department. Vital signs upon arrival show blood pressure 81/52, heart rate 125, respiratory rate 18, temp 98.0 F, and SpO2 of 98% on room air. CT abdomen pelvis and revealed severe prostatomegaly 8 cm increased from 7.5 in 2017 along with findings consistent of cystitis with emphysematous cystitis not excluded along with soft tissue thickening at the hepatic flexure, recommended direct visualization to exclude neoplasm. Chest CTA was negative for pulmonary emboli revealing mild to moderate bronchial wall thickening with aneurysmal ascending aorta measuring 4.[address] brain revealed no acute abnormalities. EKG revealed A-fib with RVR at 137 bpm with a right bundle branch block . Laboratory evaluation was remarkable for lactic acid 2.8, UA consistent with UTI, Troponin was elevated at 0.098, WBC count 19.3, magnesium 1.4, lactic acid 2.8. Patient started on IV ceftriaxone. He was admitted under our services with consultation to cardiology and urology. Troponins trended resulting at 0.098, 0.234, and 0.244. Echocardiogram was completed showing preserved EF of 55 to 60% with mild mitral regurgitation and trace tricuspid regurgitation. He was evaluated by cardiology. Cardiology recommending continuation of amiodarone and Eliquis and outpatient follow-up in their office. Urine culture positive for Klebsiella pneumoniae and blood culture positive for Klebsiella pneumoniae. Infectious disease following, recommending continuing IV antibiotics with Rocephin throughout hospitalization and discharged home on extended antibiotic course of 4 to 6 weeks secondary to severe prostamegaly and unable to rule out prostatitis. On 04/27/23 patient was taken for colonoscopy to evaluate thickening at hepatic flexure and for direct visualization to exclude colonic mass/neoplasm. Unfortunately colon scope could not be advanced beyond the proximal transverse colon secondary to large amount of solid stool in the colon. Patient and patient's family were informed if patient would like to undergo repeat colonoscopy, he will need to be reprepped with additional GoLytely. Patient and family declining repeating course of colonoscopy prep at this time, they will discuss further if they choose to do on an outpatient basis. Patient started on lactulose 20 mg twice daily for constipation and moderate stool in colon. He was complaining of right lower back and hip pain. X-ray lumbar spine was completed and radiology report reviewed showing diffuse osteopenia with multilevel moderate to severe degenera tive disc disease, facet arthropathy and multilevel foraminal protrusion. X-ray right hip reviewed showing arthroplasty with no definitive acute fracture. Patient does not want to undergo any surgical interventions and therefore orthospine surgery team was not consulted. Order placed for LSO brace for comfort. Consult was placed to pain management for evaluation and possible discussion of options with patient and family for possible epidural injection for pain management. Physical exam: Patient seen and fully evaluated at bedside this morning. He reports the longer he is up the better he is feeling this morning. Pt reports experiencing a rasp out yesterday from his lower back pain. Pain management was consulted on 04/28/2023, awaiting their evaluation of patient. Pain management has been repaged by both RN and community health outreach worker. Vital signs reviewed and stable. General: Nontoxic, no distress and appears stated age. Derm: Skin warm and dry, normal coloration for ethnicity. Head: Atraumatic, normocephalic and symmetric. Eyes: EOMs intact, no lid lag, and anicteric sclera Mouth: no lip lesions, mucus membranes moist Cardiovascular: Irregularly irregular with normal S1S2, soft systolic murmur, positive posterior tibial pulses bilaterally, and cap refill < 2 seconds. Lungs: Respirations even, regular, and unlabored on room air. Lungs CTA bilaterally, no rhonchi, no rales, no wheezing, and no accessory muscle usage. Long catheter to dependent drainage. Abdominal: soft, nontender to palpation, no guarding, no appreciable organomegaly Ext: ROM intact. No gross muscle atrophy, no edema, no contractures Neuro: Speech clear, face symmetrical and CN II-XII grossly intact with no noted focal neuro deficits Psych: Alert and oriented to person, place, time, and situation. Appropriate and pleasant affect. 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 -Hyponatremia resolved, fluid hydration discontinued. -Continue IV ceftriaxone 2 g every 24 hours pending final blood culture results -Urology following, patient with persistent urinary retention possibly secondary to severe prostatomegaly, requiring reinsertion of Long catheter with plans to discharge home with Long in place. -General surgery consulted for evaluation and taking patient for colonoscopy tomorrow. -Cardiology following, reviewed documentation in chart stating continue amiodarone 200 mg twice daily and Eliquis 5 mg twice daily -Echocardiogram was completed showing preserved EF of 55 to 60% with mild mitral regurgitation and trace tricuspid regurgitation. -Encephalopathy likely in the setting of sepsis secondary to bacteremia and UTI and has resolved Right lower hip and back pain Moderate to severe degenerative disc disease Concerns of multilevel foraminal protrusion per lumbar/sacral x-ray report Continue lidocaine patch 4% topical patch every 24 hours and Toradol 15 mg IVP every 6 hours as needed for pain. X-ray lumbar spine was completed and radiology report reviewed showing diffuse osteopenia with multilevel moderate to severe degenerative disc disease, facet arthropathy and multilevel foraminal protrusion. X-ray right hip reviewed showing arthroplasty with no definitive acute fracture. Patient is not a surgical candidate, orders placed for LSO brace for comfort. Consult placed to pain management for evaluation for possible epidural injection, awaiting their recommendations. Acute metabolic encephalopathPatient placed on lidocaine patchy, resolved Hypomagnesemia, resolved. Lactic acidosis, resolved. Leukocytosis, resolved Prerenal azotemia, resolved Incidental finding on CT, moderate bronchial wall thickening. May consider evaluation outpatient via EGD for direct visualization to rule out neoplastic process. Data and imaging reviewed: Morning labs completed and reviewed. CBC showing stable normocytic anemia with hemoglobin of 10.5. BMP showing mild hyponatremia with sodium of 134 otherwise normal findings. Magnesium slightly low at 1.7 and orders placed for magnesium oxide 400 mg p.o. x 1 dose. Vital signs reviewed. blood pressure 131/70, heart rate 70, respiratory rate 17, temp 98.0 F, and SpO2 of 97% on room air. CODE STATUS: DNR/DNI DVT prophylaxis: Eliquis held pending evaluation by pain management for possible epidural Magnesium slightly low at 1.7 orders placed for Mag-Ox 40 mEq p.o. x 1 doseinjection Anticipated discharge date: Likely within the next 24 to 48 hours, pending recommendations from pain management Anticipated discharge place: Home with family Patient was seen independently by Nurse Pracitioner. This document was prepared using [employer] dictation software. Please allow for errors in research quality assurance analyst, while rare they do occur. I reviewed the documentation as provided by the SHILPA above, who is the original author of this note. I agree with the documented assessment and plan, with the following changes: none Objective - Vital Signs Vital signs: Vital Signs Temp 98.0 F 04/30/23 07:09 Pulse 70 04/30/23 07:09 Resp 18 04/30/23 08:00 BP 131/70 04/30/23 07:09 Pulse Ox 97 04/30/23 07:09 FiO2 Intake & Output 04/29/23 04/30/23 04/30/23 18:59 06:59 18:59 Output Total 1350 825 3 Balance -1350 -825 -3 Weight 79.379 kg Output: Urine 1350 825 Stool 3 Other: Voiding Method Indwelling Catheter Indwelling Catheter Indwelling Catheter # Bowel Movements 1 1 - Labs CBC & Chem 7: 04/30/23 12:36 04/30/23 12:36
[2023-04-30 13:21] LABS: HCT 32.4 % (39.0-53.0); HGB 10.5 gm/dL (13.0-17.5); Hypochromasia Slight; MCH 30.8 pg (25.0-35.0); MCHC 32.3 g/dL (31.0-37.0); MCV 95.3 fL (80.0-100.0); Mean Platelet Volume 8.5; Platelet Count 264 k/uL (150-450); WBC 7.2 k/uL (3.8-10.6)
--- NOTE | 2023-04-30 13:21 | P.PN ---
Subjective Progress Note Date: 04/30/23 Principal diagnosis: Reason for follow-up is complicated UTI and bacteremia Patient is a 87-year-old male with a past medical history significant for large B-cell lymphoma history of prostate cancer apparently did have TURP prior to 2009 patient presented to the hospital for evaluation of weakness patient was noted to be septic secondary to complicated UTI with a blood and urine culture positive for Klebsiella. On today's evaluation that is 04/30/2023,the patient remains to be afebrile, patient is on room air not requiring supplemental oxygen and denies any short ness of breath no chest pain or cough.Patient denies having any nausea or vomiting, no abdominal pain and no diarrhea has been reported. No new labs has been obtained today follow-up blood culture negative Objective - Vital Signs Vital signs: Vital Signs Temp 98.0 F 04/30/23 07:09 Pulse 70 04/30/23 07:09 Resp 18 04/30/23 08:00 BP 131/70 04/30/23 07:09 Pulse Ox 97 04/30/23 07:09 FiO2 Intake & Output 04/29/23 04/30/23 04/30/23 18:59 06:59 18:59 Output Total 1350 825 3 Balance -1350 -825 -3 Weight 79.379 kg Output: Urine 1350 825 Stool 3 Other: Voiding Method Indwelling Catheter Indwelling Catheter Indwelling Catheter # Bowel Movements 1 1 - Exam GENERAL DESCRIPTION: An elderly male up in the chair in no distress RESPIRATORY SYSTEM: Unlabored breathing , decreased breath sounds at bases HEART: S1 S2 regular rate and rhythm , ABDOMEN: Soft , no tenderness EXTREMITIES: No edema feet - Labs CBC & Chem 7: 04/28/23 03:54 04/28/23 03:54 Assessment and Plan (1) Bacteremia Current Visit: Yes Status: Acute Code(s): R78.81 - BACTEREMIA SNOMED Code (s): 2207397 (2) Leukocytosis Current Visit: Yes Status: Acute Code(s): D72.829 - ELEVATED WHITE BLOOD CELL COUNT, UNSPECIFIED SNOMED Code(s): 696722291 (3) UTI (urinary tract infection) Current Visit: Yes Status: Acute Code(s): N39.0 - URINARY TRACT INFECTION, SITE NOT SPECIFIED SNOMED Code(s): 86302352 Plan: 1patient presented to hospital with complicated UTI in this patient who do have a history of prostate cancer now with significant enlargement of the prostate and irregularity of the bladder indicating of bladder outlet obstruction patient urine and blood culture positive for Klebsiella indicating complicated UTI 2-patient has shown clinical improvement repeat blood culture negative, patient will continue with Rocephin 2 g daily while inpatient and will transition to oral Ceftin 500 mg twice a day for 4 weeks on discharge cannot use Cipro as the patient is on amiodarone Family at the bedside questions were answered Dictation was produced using [employer] dictation software. please excuse any grammatical, word or spelling errors. Time with Patient: Less than 30
[2023-04-30 13:39] LABS: ALT 24 U/L (4-49); AST 36 U/L (17-59); African American GFR (CKD) 84 (>60 ml/min/1.73 sqM); Albumin 3.1 g/dL (3.5-5.0); Albumin/Globulin Ratio 1.1; Alkaline Phosphatase 75 U/L (38-126); Anion Gap 7 mmol/L; Blood Urea Nitrogen 20 mg/dL (9-20); Calcium 8.6 mg/dL (8.4-10.2); Carbon Dioxide 22 mmol/L (22-30); Chloride 105 mmol/L (98-107); Globulin 2.8 g/dL; Glucose 130 mg/dL (74-99); Magnesium 1.7 mg/dL (1.6-2.3); Non-African American GFR(CKD) 72 (>60 ml/min/1.73 sqM); Potassium 3.8 mmol/L (3.5-5.1); Sodium 134 mmol/L (137-145); Total Bilirubin 0.4 mg/dL (0.2-1.3); Total Protein 5.9 g/dL (6.3-8.2)
--- NOTE | 2023-04-30 14:16 | P.DS ---
Providers Date of admission: 04/22/23 22:02 Expected date of discharge: 04/30/23 Attending physician: Cari Thomson MD Consults: 04/22/23 21:50 Consult Physician Urgent Consulting Provider: [facility] Consult Reason/Comments: nstemi, new onset afib Do you want consulting provider notified?: Yes 04/22/23 23:50 Consult Physician Urgent Consulting Provider: Narciso Salinas Consult Reason/Comments: UTI with prostate ca Do you want consulting provider notified?: Yes 04/25/23 12:53 Consult Physician Routine Consulting Provider: Jorge Molina Consult Reason/Comments: klebsiella UTI with bacteremia Do you want consulting provider notified?: Yes 04/28/23 16:10 Consult Physician Routine Consulting Provider: Nohemy Figueroa Consult Reason/Comments: pain management, lower back pain into right hip severe DGD, not sx alyssa Do you want consulting provider notified?: Yes Primary care physician: Stated None Hospital Course: Discharge Diagnosis: Klebsiella bacteremia and Klebsiella pneumoniae UTI. Patient received an extended course of IV antibiotics throughout hospitalization. He was evaluated by infectious disease and being discharged home on a prolonged course of antibiotics with Ceftin 500 mg twice daily for an additional 4 weeks and to follow-up outpatient with infectious disease and urology as discussed. 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 Cardiology recommending patient continue amiodarone 200 mg twice daily and Eliquis 5 mg twice daily and follow-up in their office in 1 week.Echocardiogram was completed showing preserved EF of 55 to 60% with mild mitral regurgitation and trace tricuspid regurgitation. NSTEMI, likely type II [place] resulting from demand ischemia from RVR. 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 Continue long-term monitoring/management with outpatient follow-up visits with candy depositing machine operator. Concerns of possible colonic mass vs recurrent B-cell lymphoma. General surgery evaluated and took patient for colonoscopy, unable to advance colon scope secondary to insufficient bowel prep. Recommend outpatient follow-up in their office for further discussion and rescheduling of colonoscopy and possibly EGD. Incidental finding on CT, moderate bronchial wall thickening. May consider evaluation outpatient via EGD with general surgeon for direct visualization to rule out neoplastic process. Right lower hip and back pain with Moderate to severe degenerative disc disease and Concerns of multilevel foraminal protrusion per lumbar/sacral x-ray report. Continue Tylenol 650 mg every 6 hours as needed for mild pain/discomfort and lidocaine patch 4% topical patch every 24 hours. Patient to follow-up outpatient with pain management for further discussion and scheduling of lumbar spinal epidural injection as they discussed. Acute metabolic encephalopathPatient placed on lidocaine patchy, resolved Hypomagnesemia, resolved. Lactic acidosis, resolved. Leukocytosis, resolved Prerenal azotemia, resolved Hospital course: Patient is a very pleasant 87-year-old male with a PMH of prostate cancer, BPH, and large B-cell lymphoma treated with chemotherapy in 2009. He presented to the emergency department on 04/22/2023 with complaints of generalized weakness and confusion. He underwent full evaluation in the emergency department. Vital signs upon arrival show blood pressure 81/52, heart rate 125, respiratory rate 18, temp 98.0 F, and SpO2 of 98% on room air. CT abdomen pelvis and revealed severe prostatomegaly 8 cm increased from 7.5 in 2017 along with findings consistent of cystitis with emphysematous cystitis not excluded along with soft tissue thickening at the hepatic flexure, recommended direct visualization to exclude neoplasm. Chest CTA was negative for pulmonary emboli revealing mild to moderate bronchial wall thickening with aneurysmal ascending aorta measuring 4.[address] brain revealed no acute abnormalities. EKG revealed A-fib with RVR at 137 bpm with a right bundle branch block . Laboratory evaluation was remarkable for lactic acid 2.8, UA consistent with UTI, Troponin was elevated at 0.098, WBC count 19.3, magnesium 1.4, lactic acid 2.8. Patient started on IV ceftriaxone. He was admitted under our services with consultation to cardiology and urology. Troponins trended resulting at 0.098, 0.234, and 0.244. Echocardiogram was completed showing preserved EF of 55 to 60% with mild mitral regurgitation and trace tricuspid regurgitation. He was evaluated by cardiology. Cardiology recommending continuation of amiodarone and Eliquis and outpatient follow-up in their office. Urine culture positive for Klebsiella pneumoniae and blood culture positive for Klebsiella pneumoniae. Infectious disease following, recommending continuing IV antibiotics with Rocephin throughout hospitalization and discharged home on extended antibiotic course of 4 to 6 weeks secondary to severe prostamegaly and unable to rule out prostatitis. On 04/27/23 patient was taken for colonoscopy to evaluate thickening at hepatic flexure and for direct visualization to exclude colonic mass/neoplasm. Unfortunately colon scope could not be advanced beyond the proximal transverse colon secondary to large amount of solid stool in the colon. Patient and patient's family were informed if patient would like to undergo repeat colonoscopy, he will need to be reprepped with additional GoLytely. Patient and family declining repeating course of colonoscopy prep at this time, they will discuss further if they choose to do on an outpatient basis. Patient started on lactulose 20 mg twice daily for constipation and moderate stool in colon. He was complaining of right lower back and hip pain. X-ray lumbar spine was completed and radiology report reviewed showing diffuse osteopenia with multilevel moderate to severe degenerative disc disease, facet arthropathy and multilevel foraminal protrusion. X-ray right hip reviewed showing arthroplasty with no definitive acute fracture. Patient does not want to undergo any surgical interventions and therefore orthospine surgery team was not consulted. Order placed for LSO brace for comfort. Consult was placed to pain management for evaluation and possible discussion of options with patient and family for possible epidural injection for pain management. Pain management evaluated, recommending outpatient follow- up in their office for scheduling of epidural injection for management of back pain, they are recommending holding off in doing outpatient secondary to patient's recent infection and prolonged hospitalization but plan to go forth and schedule on an outpatient basis. Patient may resume Eliquis at this time. Long catheter to remain in place upon discharge and patient to follow-up outpatient with urologist. Per recommendations of infectious disease patient being discharged home on an additional 4-week course of Ceftin 500 mg twice daily. Patient is medically stable for discharge at this time. He is to follow- up with PCP, cardiology, urology, general surgery, and pain management upon discharge. Physical exam: Please see progress note completed earlier in day to review detailed physical exam findings. A total of 38 minutes of time were spent preparing this complex discharge summary. Pt was discharged on 05/29/2023 at 2:14 PM. Patient was seen independently by Nurse Practitioner. This document was prepared using [employer] dictation software. Please allow for errors in speech and hearing clinic director while rare they do occur. I reviewed the documentation as provided by the SHILPA above, who is the original author of this note. I agree with the documented assessment and plan, with the following changes: none Patient Condition at Discharge: Stable Plan - Discharge Summary Discharge Rx Participant: Yes New Discharge Prescriptions: New Amiodarone [Cordarone] 200 mg PO BID 30 Days #60 tab Apixaban [Eliquis] 5 mg PO BID 30 Days #60 tab Pantoprazole [Protonix] 40 mg PO DAILY 30 Days #30 tab polyethylene glycoL 3350 [Miralax] 17 gm PO DAILY 30 Days #30 packet Lidocaine 4% Patch 1 patch TOPICAL DAILY 30 Days #30 patch cefUROXime axetiL [Ceftin] 500 mg PO BID 28 Days #56 tab Discharge Medication List Amiodarone [Cordarone] 200 mg PO BID 30 Days #60 tab 04/30/23 [Rx] Apixaban [Eliquis] 5 mg PO BID 30 Days #60 tab 04/30/23 [Rx] Lidocaine 4% Patch 1 patch TOPICAL DAILY 30 Days #30 patch 04/30/23 [Rx] Pantoprazole [Protonix] 40 mg PO DAILY 30 Days #30 tab 04/30/23 [Rx] cefUROXime axetiL [Ceftin] 500 mg PO BID 28 Days #56 tab 04/30/23 [Rx] polyethylene glycoL 3350 [Miralax] 17 gm PO DAILY 30 Days #30 packet 04/30/23 [Rx] Follow up Appointment(s)/Referral(s): Dilia Lozano MD [REFERRING] - 3 Days Linwood Ang MD [STAFF PHYSICIAN] - 1 Week (Follow-up and close monitoring of 4.4 cm aneurysmal ascending aorta) Jorge Molina MD [STAFF PHYSICIAN] - 1 Week Chad Chinchilla MD [STAFF PHYSICIAN] - 1 Week Vikas Chen MD [STAFF PHYSICIAN] - 1 Week Nadia Virk [NON-STAFF] - As Needed (LSO back brace) Kumar Melgar MD [STAFF PHYSICIAN] - 1 Week Patient Instructions/Handouts: A-fib (Atrial Fibrillation) (DC), Urinary Tract Infection in Men (DC), Long Catheter Placement and Care (DC), Urinary Leg Bag (GEN), Bacteremia (DC) Activity/Diet/Wound Care/Special Instructions: Activity: As tolerated. Ambulate with walker and assistance as needed. Diet: Heart healthy and carb consistent diet. Avoid salts, or foods with hidden salts such as canned or boxed foods and frozen dinners. Extra salt makes your heart work harder and traps the fluid in your body for longer. Special Instructions: Take all of your medications as directed and remember to keep all of your doctor's appointments and follow-up as needed. Wear LSO brace for assistance with pain management when out of bed. Thank you for allowing us to participate in your care, it was truly a pleasure having you for our patient!!! Discharge Disposition: HOME SELF-CARE
[2023-04-30] MEDS: CEFDINIR 300 MG CAP PO SCH (14:36)
[2023-04-30] MEDS: MAGNESIUM OXIDE 400 MG TAB PO STA (14:57)
[2023-04-30] MEDS: APIXABAN 5 MG TAB PO SCH (14:57)
--- NOTE | 2023-04-30 15:17 | P.PAINCN ---
History of Present Illness - Reason for Consult Consult date: 04/30/23 Back painBack pain - Chief Complaint Back pain - History of Present Illness This is a 87-year-old pleasant gentleman who has been admitted to the hospital with septicemia with septicemia secondary to UTI . Patient was on IV antibiotic, going home on oral antibiotic. Patient's back pain has been more than 10 years off-and-on. This episode started about early March this year. Pain is located low back mostly in the right area. Pain is there all the time, increases with any movement of the body. Describes the pain as aching in character. Intensity of pain goes up to 10 over 10. 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 Prostate cancer History of Any Multi-Drug Resistant Organisms: None Reported Past Surgical History: Prostate Surgery Additional Past Surgical History / Comment(s): TURP prior to 2009 Past Anesthesia/Blood Transfusion Reactions: No Reported Reaction Past Psychological History: No Psychological Hx Reported Smoking Status: Never smoker Past Alcohol Use History: Rare Past Drug Use History: None Reported - Past Family History Father Family Medical History: Cancer, CVA/TIA Mother Family Medical History: No Reported History Medications and Allergies Home Medications Medication Instructions Recorded Confirmed Type Amiodarone [Cordarone] 200 mg PO BID 30 Days #60 tab 04/30/23 Rx Apixaban [Eliquis] 5 mg PO BID 30 Days #60 tab 04/30/23 Rx Lidocaine 4% Patch 1 patch TOPICAL DAILY 30 Days #30 04/30/23 Rx patch Pantoprazole [Protonix] 40 mg PO DAILY 30 Days #30 tab 04/30/23 Rx cefUROXime axetiL [Ceftin] 500 mg PO BID 28 Days #56 tab 04/30/23 Rx polyethylene glycoL 3350 [Miralax] 17 gm PO DAILY 30 Days #30 packet 04/30/23 Rx Allergies Allergy/AdvReac Type Severity Reaction Status Date / Time No Known Allergies Allergy Verified 04/22/23 19:11 Physical Exam Vitals: Vital Signs Temp Pulse Resp BP BP Pulse Ox 04/30/23 08:00 18 04/30/23 07:09 98.0 F 70 17 131/70 97 04/30/23 01:21 97.8 F 72 18 116/72 95 04/29/23 20:00 98.3 F 62 18 135/72 97 Intake and Output 04/30/23 04/30/23 04/30/23 06:59 14:59 22:59 Output Total 3 Balance -3 Output: Stool 3 Other: Voiding Method Indwelling Catheter # Bowel Movements 1 - Neurologic Limited physical exam was done because of patient's immobility. Lumbar spine-tenderness in midline and paraspinal areas. The lumbosacral spine flexion and extension rotation limited secondary to pain positive paraspinal muscle spasm. neurological exam-motor strength of big toes ankles knees 5/5 bilaterally. Sensation to touch is intact bilaterally . Results CBC & Chem 7: 04/30/23 12:36 04/30/23 12:36 Labs: Abnormal Lab Results - Last 24 Hours (Table) 04/30/23 04/30/23 Range/Units 12:36 12:36 RBC 3.40 L (4.30-5.90) m/uL Hgb 10.5 L (13.0-17.5) gm/dL Hct 32.4 L (39.0-53.0) % Sodium 134 L (137-145) mmol/L Glucose 130 H (74-99) mg/dL Total Protein 5.9 L (6.3-8.2) g/dL Albumin 3.1 L (3.5-5.0) g/dL Assessment and Plan (1) Lumbar spondylosis Current Visit: Yes Status: Acute Code(s): M47.816 - SPONDYLOSIS W/O MYELOPATHY OR RADICULOPATHY, LUMBAR REGION SNOMED Code(s): 995676932 (2) Lumbar spinal stenosis Current Visit: Yes Status: Acute Code(s): M48.061 - SPINAL STENOSIS, LUMBAR REGION WITHOUT NEUROGENIC ANU SNOMED Code(s): 51731645 Plan: Patient is not a candidate for any injection at this because of recent septicemia and infection . Had a long discussion with patient and his daughter. They will make an appointment to pain clinic as an outpatient and will treat there. Time with Patient: Less than 30 PQRS Measure Charge Sheet - Pain Location None Non-Pharmacological Interventions: Darkened Room, Position/Reposition Pharmacological Interventions: PRN Medication PQRS Narrative: Smoking Status Never smoker Blood Pressure [Left Arm] 131/70 Blood Pressure [Right Arm] 116/72 Blood Pressure 108/63 Pain Intensity [None] 0 Pain Intensity 3 Pain Scale Used Numeric (1 - 10) Scale Used Numeric (1 - 10) Home Medications: Ambulatory Orders Amiodarone [Cordarone] 200 mg PO BID 30 Days #60 tab 04/30/23 Apixaban [Eliquis] 5 mg PO BID 30 Days #60 tab 04/30/23 Lidocaine 4% Patch 1 patch TOPICAL DAILY 30 Days #30 patch 04/30/23 Pantoprazole [Protonix] 40 mg PO DAILY 30 Days #30 tab 04/30/23 cefUROXime axetiL [Ceftin] 500 mg PO BID 28 Days #56 tab 04/30/23 polyethylene glycoL 3350 [Miralax] 17 gm PO DAILY 30 Days #30 packet 04/30/23
== END 2023-04-30 17:27 | disposition home or self-care (01) | DRG 871 ==
LOC: EC 17:16 → 3SCARD 22:02 → 4SSUR 04-25 00:05
PROVIDERS: ADMIT Internal Medicine; ATTEND Internal Medicine
PROC: 0DJD8ZZ Inspection of Lower Intestinal Tract, Via Natural or Artificial Opening Endoscopic (ICD-10-PCS; principal; 2023-04-27 07:30)
DX: A41.59 Other Gram-negative sepsis (principal); G93.41 Metabolic encephalopathy; I21.A1 Myocardial infarction type 2; E87.20 Acidosis, unspecified; E87.1 Hypo-osmolality and hyponatremia; I71.21 Aneurysm of the ascending aorta, without rupture; F03.90 Unspecified dementia, unspecified severity, without behavioral disturbance, psychotic disturbance, mood disturbance, and anxiety; I48.0 Paroxysmal atrial fibrillation; E86.0 Dehydration; B96.1 Klebsiella pneumoniae [K. pneumoniae] as the cause of diseases classified elsewhere; N30.81 Other cystitis with hematuria; I08.1 Rheumatic disorders of both mitral and tricuspid valves; M51.36 Other intervertebral disc degeneration, lumbar region; I45.10 Unspecified right bundle-branch block; K59.00 Constipation, unspecified; M85.88 Other specified disorders of bone density and structure, other site; M47.819 Spondylosis without myelopathy or radiculopathy, site unspecified; I49.1 Atrial premature depolarization; M48.061 Spinal stenosis, lumbar region without neurogenic claudication; N40.0 Benign prostatic hyperplasia without lower urinary tract symptoms; M51.37 Other intervertebral disc degeneration, lumbosacral region; K57.30 Diverticulosis of large intestine without perforation or abscess without bleeding; E83.42 Hypomagnesemia; R29.6 Repeated falls; N41.9 Inflammatory disease of prostate, unspecified; N32.89 Other specified disorders of bladder; W19.XXXA Unspecified fall, initial encounter; Y92.009 Unspecified place in unspecified non-institutional (private) residence as the place of occurrence of the external cause; Z91.81 History of falling; Z85.46 Personal history of malignant neoplasm of prostate; Z92.21 Personal history of antineoplastic chemotherapy; Z86.711 Personal history of pulmonary embolism; Z87.440 Personal history of urinary (tract) infections; Z85.72 Personal history of non-Hodgkin lymphomas; Z11.52 Encounter for screening for COVID-19; Z86.73 Personal history of transient ischemic attack (TIA), and cerebral infarction without residual deficits; Z86.19 Personal history of other infectious and parasitic diseases
CPT/HCPCS: 36415; 45378; 70450; 71046; 71275; 72100; 73502; 74177; 80048; 80053; 81001; 83605; 83735; 84100; 84484; 85025; 85027; 85610; 85730; 87040; 87077; 87086; 87186; 87636; 93005; 93306; 96365; 96366; 96367; 99285